=== PATIENT | male | born 1955 | race Two or more races ===

== ENCOUNTER 2018-12-30 03:28 | Inpatient (IN) | payer OTHER ==
[2018-12-30] MEDS ORDERED: FAMOTIDINE 20 MG/50 ML IVPB 20 MG/50 ML MG IVPB ONE ×2 (04:03→04:11)
[2018-12-30] MEDS ORDERED: ONDANSETRON 4 MG/2 ML VIAL IVPUSH ONE (04:03)
[2018-12-30] MEDS ORDERED: ONDANSETRON 4 MG/2 ML VIAL ONE (04:11)
--- NOTE | 2018-12-30 04:15 | PDOC ---
Attending Attestation - Resident Resident Name: Musa Lindsay - ED Attending Attestation I have performed the following: I have examined & evaluated the patient, The case was reviewed & discussed with the resident, I agree w/resident's findings & plan - HPI HPI: 12/30/18 06:46 63-year-old male complaining of upper abdominal pain, nonradiating sharp in nature. There is no associated fever. - Physicial Exam PE: 12/30/18 06:46 Agree with resident's exam. - Medical Decision Making 12/30/18 06:47 63-year-old male with upper abdominal pain Labs including troponin, EKG and CT scan of the abdomen and pelvis CT scan shows hepatic hypodensities and probable biliary disease Plan for ultrasound, signed out to dayshift for reevaluation 12/30/18 06:47
[2018-12-30 04:29] LABS: BASO % 0.9 % (0-2.0); EOS % 0.7 % (0-4.5); HEMATOCRIT 42.7 % (35.4-49); HEMOGLOBIN 14.6 GM/dL (11.7-16.9); LYMPH % 23.7 % (8-40); MCH 29.9 pg (25.7-33.7); MCHC 34.1 g/dl (32.0-35.9); MEAN CELL VOLUME 87.6 fl (80-96); MONO % 7.1 % (3.8-10.2); NEUT % 67.6 % (42.8-82.8); PLATELET COUNT 208 K/MM3 (134-434); RBC 4.87 M/mm3 (4.00-5.60); RDW 13.8 % (11.9-15.9)
[2018-12-30 04:39] LABS: INR 0.97 (0.83-1.09); PROTHROMBIN TIME (PATIENT) 11.5 SEC (9.7-13.0)
[2018-12-30 04:53] LABS: ALBUMIN 4.2 g/dl (3.4-5.0); ALK PHOS 51 U/L (45-117); ANION GAP 9 MMOL/L (8-16); BILIRUBIN,TOTAL 0.4 mg/dL (0.2-1); BLOOD UREA NITROGEN 13 mg/dL (7-18); CHLORIDE 105 mmol/L (98-107); CO2 27 mmol/L (21-32); CREATININE 0.9 mg/dL (0.55-1.3); GLUCOSE,RANDOM 126 mg/dL (74-106); LIPASE 125 U/L (73-393); POTASSIUM 3.3 mmol/L (3.5-5.1); SGOT/AST 13 U/L (15-37); SGPT/ALT 23 U/L (13-61); SODIUM 141 mmol/L (136-145); TOT PROT 7.8 g/dl (6.4-8.2)
[2018-12-30] MEDS ORDERED: morphine SULFATE 4 MG/ML VIAL ONE (05:22)
[2018-12-30] MEDS ORDERED: morphine CARPU-JECT 4 MG/1 ML DISP.SYRIN IVPUSH ONE (05:22)
--- NOTE | 2018-12-30 05:37 | PDOC ---
History of Present Illness - General Chief Complaint: Pain Stated Complaint: UPPER ABDOMINAL PAIN Time Seen by Provider: 12/30/18 03:58 History Source: Patient Exam Limitations: No Limitations - History of Present Illness Initial Comments: 12/30/18 05:33 63M with PMH of HTN who presents to the ER with complaints of abdominal pain. The patient describes a sharp pressure in his epigastrium and RUQ which is worsening and radiates to his back. The pain is atraumatic and he has never had pain like this in the past. He admits to chills and nausea without vomiting, fever, CP, SOB, diaphoresis. He denies any changes with food. He denies any hematochezia and abdominal surgeries. Past History - Past Medical History Allergies/Adverse Reactions: Allergies Allergy/AdvReac Type Severity Reaction Status Date / Time No Known Allergies Allergy Verified 12/30/18 03:52 Home Medications: Ambulatory Orders Amlodipine Besylate 1 tab PO DAILY 12/30/18 Hydrochlorothiazide 1 tab PO DAILY 12/30/18 Vitamin B Complex [B Complex] 1 each PO 12/30/18 Zinc Gluconate-Zinc Picolinate [Zinc] 30 mg PO 12/30/18 COPD: No HTN: Yes - Surgical History Neurologic Surgery: Yes (BRAIN CLIP) - Suicide/Smoking/Psychosocial Hx Smoking History: Never smoked Review of Systems - Review of Systems Able to Perform ROS?: Yes Comments:: 12/30/18 05:36 GENERAL/CONSTITUTIONAL: + for chills. No fever. No weakness. HEAD, EYES, EARS, NOSE AND THROAT: No change in vision. No ear pain or discharge. No sore throat. CARDIOVASCULAR: No chest pain, palpitations, or lightheadedness. RESPIRATORY: No cough, wheezing, shortness of breath, or hemoptysis. GASTROINTESTINAL: + for abdominal pain with nausea. No vomiting, diarrhea, or constipation. GENITOURINARY: No dysuria, frequency, hematuria, or change in urination. MUSCULOSKELETAL: No joint or muscle swelling or pain. No neck or back pain. SKIN: No rash or lesions. NEUROLOGIC: No headache, numbness, tingling, focal weakness, loss of consciousness, or change in strength/sensation. Is the patient limited Spanish proficient: No *Physical Exam - Vital Signs Last Vital Signs Temp Pulse Resp BP Pulse Ox 97.6 F 88 18 141/89 99 12/30/18 03:49 12/30/18 03:49 12/30/18 03:49 12/30/18 03:49 12/30/18 03:49 - Physical Exam Comments: 12/30/18 05:37 GENERAL: Well developed, well nourished. Awake and alert. No acute distress. HEENT: Normocephalic, atraumatic. Hearing grossly normal. Moist mucous membranes. PERRLA, EOMI. No conjunctival pallor. Sclera are non-icteric. NECK: Supple. Full ROM. No JVD. CARDIOVASCULAR: Regular rate and rhythm. No murmurs, rubs, or gallops. PULMONARY: No evidence of respiratory distress. Lungs clear to auscultation bilaterally. No wheezing, rales or rhonchi. ABDOMINAL: Soft. TTP in RUQ and epigastrium. Negative Wallace's. Non-distended. No rebound or guarding. MUSCULOSKELETAL: Normal range of motion at all joints. No bony deformities or tenderness. EXTREMITIES: No cyanosis. No clubbing. No edema. No calf tenderness or swelling. SKIN: Warm and dry. Normal capillary refill. No rashes. No jaundice. NEUROLOGICAL: Alert, awake, appropriate. Cranial nerves 2-12 grossly intact. Normal speech. Gait is normal without ataxia. PSYCHIATRIC: Cooperative. Good eye contact. Appropriate mood and affect. ED Treatment Course - LABORATORY CBC & Chemistry Diagram: 12/31/18 05:45 12/31/18 05:45 - ADDITIONAL ORDERS Additional order review: Laboratory Results 12/30/18 12/30/18 04:10 04:10 PT with INR 11.50 INR 0.97 Sodium 141 Potassium 3.3 L Chloride 105 Carbon Dioxide 27 Anion Gap 9 BUN 13 Creatinine 0.9 Creat Clearance w eGFR 85.23 Random Glucose 126 H Calcium 9.0 Total Bilirubin 0.4 AST 13 L ALT 23 Alkaline Phosphatase 51 Creatine Kinase 95 Troponin I < 0.02 Total Protein 7.8 Albumin 4.2 Lipase 125 12/30/18 04:10 RBC 4.87 MCV 87.6 MCHC 34.1 RDW 13.8 MPV 8.0 Neutrophils % 67.6 Lymphocytes % 23.7 Monocytes % 7.1 Eosinophils % 0.7 Basophils % 0.9 - RADIOLOGY Radiology Studies Ordered: Category Date Time Status ABDOMEN & PELVIS CT W/O CONTR [CT] Stat CT Scan 12/30/18 05:22 Ordered - Medications Given in the ED: ED Medications Discontinued Medications Generic Name Dose Route Start Last Admin Trade Name Isela PRN Reason Stop Dose Admin Famotidine/Sodium Chloride 20 mg in 50 mls @ 100 mls/hr 12/30/18 04:03 04:18 Pepcid 20 Mg Premixed Ivpb - IVPB 12/30/18 04:32 100 mls/hr ONCE ONE Administration Morphine Sulfate 4 mg 12/30/18 05:22 12/30/18 05:25 Morphine Injection - IVPUSH 12/30/18 05:23 4 mg ONCE ONE Administration Ondansetron HCl 4 mg 12/30/18 04:03 12/30/18 04:18 Zofran Injection IVPUSH 12/30/18 04:04 4 mg ONCE ONE Administration Medical Decision Making - Medical Decision Making 12/30/18 05:38 63M with PMH of HTN who presents with epigastric pain. Pt denies EtOH use. Due to age and PMH, will order troponin and EKG, both WNL. Labs including lipase and CBC WNL. Pt requiring IV pain medications. POCUS reveals normal AGBW size with 2 gallstones. Will obtain CTAP to evaluate pancreas and gallbladder. 12/30/18 06:39 CT impression: 5.8 x 5.1 x 4.3 cm heterogeneous hypodensity right lobe of liver, possibly a neoplasm, abscess, or hemangioma. Advise followup liver protocol MRI. Small hypodensities in gallbladder neck, possibly cholelithiasis. No nephrolithiasis, ureterolithiasis or obstructive uropathy. No bladder calculi. Unremarkable pancreas. Very faint haziness central mesenteric fat, possibly edema or mesenteritis. No bowel obstruction, colitis, free fluid or free air. Normal appendix. Small umbilical and bilateral inguinal region hernias containing fat. Trace pericardial fluid. Pending official US. 12/30/18 07:02 Pt signed out to Dr. May for further evaluation. *DC/Admit/Observation/Transfer Diagnosis at time of Disposition: Epigastric pain, Cholecystitis - Discharge Dispostion Condition at time of disposition: Good - Referrals - Patient Instructions - Post Discharge Activity
[2018-12-30] MEDS ORDERED: SODIUM CHLORIDE 0.9% 1000 ML INFUS.BAG IV ONE (05:53)
--- NOTE | 2018-12-30 07:16 | PDOC ---
*Physical Exam - Vital Signs Last Vital Signs Temp Pulse Resp BP Pulse Ox 97.6 F 80 18 122/66 100 12/30/18 03:49 12/30/18 05:56 12/30/18 05:56 12/30/18 05:56 12/30/18 05:56 ED Treatment Course - LABORATORY CBC & Chemistry Diagram: 12/30/18 04:10 12/30/18 04:10 - ADDITIONAL ORDERS Additional order review: Laboratory Results 12/30/18 12/30/18 04:10 04:10 PT with INR 11.50 INR 0.97 Sodium 141 Potassium 3.3 L Chloride 105 Carbon Dioxide 27 Anion Gap 9 BUN 13 Creatinine 0.9 Creat Clearance w eGFR 85.23 Random Glucose 126 H Calcium 9.0 Total Bilirubin 0.4 AST 13 L ALT 23 Alkaline Phosphatase 51 Creatine Kinase 95 Troponin I < 0.02 Total Protein 7.8 Albumin 4.2 Lipase 125 12/30/18 04:10 RBC 4.87 MCV 87.6 MCHC 34.1 RDW 13.8 MPV 8.0 Neutrophils % 67.6 Lymphocytes % 23.7 Monocytes % 7.1 Eosinophils % 0.7 Basophils % 0.9 - Medications Given in the ED: ED Medications Discontinued Medications Generic Name Dose Route Start Last Admin Trade Name Freq PRN Reason Stop Dose Admin Famotidine/Sodium Chloride 20 mg in 50 mls @ 100 mls/hr 12/30/18 04:03 04:18 Pepcid 20 Mg Premixed Ivpb - IVPB 12/30/18 04:32 100 mls/hr ONCE ONE Administration Morphine Sulfate 4 mg 12/30/18 05:22 12/30/18 05:25 Morphine Injection - IVPUSH 12/30/18 05:23 4 mg ONCE ONE Administration Ondansetron HCl 4 mg 12/30/18 04:03 12/30/18 04:18 Zofran Injection IVPUSH 12/30/18 04:04 4 mg ONCE ONE Administration Sodium Chloride 1,000 ml 12/30/18 05:53 12/30/18 05:57 Normal Saline - IV 12/30/18 05:54 1,000 ml ONCE ONE Administration Medical Decision Making - Medical Decision Making The pt presented for RUQ/abdominal pain, bedside US reportedly w/ cholelithiasis and CT w/ cholelithiasis and liver hypodensity pending formal US for dispo 12/30/18 07:10 EXAM: CT ABDOMEN AND PELVIS WITHOUT CONTRAST 12/30/2018 5.8 x 5.1 x 4.3 cm heterogeneous hypodensity right lobe of liver, possibly a neoplasm, abscess, or hemangioma. Advise followup liver protocol MRI. Small hypodensities in gallbladder neck, possibly cholelithiasis. Very faint haziness central mesenteric fat, possibly edema or mesenteritis Small umbilical and bilateral inguinal region hernias containing fat. Trace pericardial fluid 12/30/18 07:16 US w/ cholelithiasis, percholecystic fluid, and sludge w/ +Wallace's. General Surgery consulted, will start Zosyn, and admit for possible cholecystectomy 12/30/18 09:51 Pt signed out to hospitalist team, will admit to Med/Surg Will give Ofirmev for pain 12/30/18 10:00 *DC/Admit/Observation/Transfer Diagnosis at time of Disposition: Epigastric pain, Cholecystitis - Discharge Dispostion Condition at time of disposition: Good Decision to Admit order: Yes - Referrals Referrals: Abdirahman Rivas MD [Primary Care Provider] - - Patient Instructions - Post Discharge Activity
[2018-12-30] MEDS ORDERED: PIPERACILLIN/TAZOB 3.375 GM 3.375 GM in DEXTROSE 5%-WATER - 50 ML IVPB ONE (09:55)
[2018-12-30] MEDS ORDERED: ACETAMINOPHEN 1000 MG/100 ML VIAL (NON FORMULARY) IVPB ONE (09:55)
[2018-12-30] MEDS ORDERED: PIPERACILLIN/TAZOB 3.375 GM 3.375 GM/50 ML BAG IVPB ONE (10:04)
[2018-12-30] MEDS ORDERED: ACETAMINOPHEN INJECTION 100 ML IVPB ONE (10:04)
[2018-12-30] MEDS ORDERED: ONDANSETRON 4 MG/2 ML VIAL IVPUSH PRN (10:41)
[2018-12-30] MEDS ORDERED: ACETAMINOPHEN 1000 MG/100 ML VIAL (NON FORMULARY) IVPB PRN (10:44)
--- NOTE | 2018-12-30 10:47 | HP ---
CHIEF COMPLAINT: abdominal PCP: Dr Rivas HISTORY OF PRESENT ILLNESS: The patient is a 63 year old male with PMH of HTN that presented today complaining of abdominal pain that started yesterday around 10 PM after eating honey. He started experiencing mid-epigastric discomfort that became painful, 5/ 10 and moved to right side of his abdomen, radiating to the back. The patient took Mylanta without improvement of his symptoms. The pain was present overnight and the patient decided to come to ED in the morning. When I saw the patient he was still complaining of the pain but stated that it improved. He also reported chills. He never had similar pain in the past. He denies nausea, vomiting, diarrhea, fever, abdominal surgeries in the past. ER course was notable for: (1)CBC, CMp, (2)US, CT abdomen (3)Zosyn, NS 1 L PAST MEDICAL HISTORY: as above PAST SURGICAL HISTORY: brain aneurism that was clipped "years ago" tonsillectomy Social History: Smoking:quit 30 years ago Alcohol:occasional Drugs:no , one healthy child Family History: Mother: dementia, HTN, glaucome Father: HTN, CVS Brother: CVA Sister: parkinsons, Alzheimers Allergies No Known Allergies Allergy (Verified 12/30/18 03:52) HOME MEDICATIONS: HCTZ, Amlodypine REVIEW OF SYSTEMS CONSTITUTIONAL: chills Absent: fever, diaphoresis, generalized weakness, malaise, loss of appetite, weight change HEENT: Absent: rhinorrhea, nasal congestion, throat pain, throat swelling, difficulty swallowing CARDIOVASCULAR: Absent: chest pain, syncope, palpitations, irregular heart rate, lightheadedness , peripheral edema RESPIRATORY: Absent: cough, shortness of breath, dyspnea with exertion, orthopnea, wheezing GASTROINTESTINAL:abdominal pain Absent: abdominal distension, nausea, vomiting, diarrhea, constipation GENITOURINARY: Absent: dysuria, frequency, urgency, hesitancy, hematuria, flank pain, genital pain MUSCULOSKELETAL: Absent: myalgia, arthralgia, joint swelling, back pain, neck pain HEMATOLOGIC/IMMUNOLOGIC: Absent: easy bleeding, easy bruising, ENDOCRINE: Absent: unexplained weight gain, unexplained weight loss, heat intolerance, cold intolerance NEUROLOGIC: Absent: headache, focal weakness or paresthesias, dizziness, unsteady gait, seizure PSYCHIATRIC: Absent: anxiety, depression, suicidal or homicidal ideation, hallucinations. PHYSICAL EXAMINATION Vital Signs - 24 hr 12/30/18 12/30/18 12/30/18 03:49 05:56 10:44 Temperature 97.6 F 98.0 F Pulse Rate 88 Pulse Rate [ 80 74 Right Radial] Respiratory 18 18 18 Rate Blood Pressure 141/89 Blood Pressure 122/66 128/72 [Left Arm] O2 Sat by Pulse 99 100 98 Oximetry (%) GENERAL: Awake, alert, and fully oriented, in no acute distress. HEAD: Normal with no signs of trauma. EYES: Extraocular movements intact EARS, NOSE, THROAT: Oropharynx clear without exudates. Moist mucous membranes. NECK: Normal range of motion, supple without lymphadenopathy, JVD, or masses. LUNGS: Breath sounds equal, clear to auscultation bilaterally. No wheezes, and no crackles. HEART: Regular rate and rhythm, normal S1 and S2 without murmur, rub or gallop. ABDOMEN: Soft, tender in RUQ, Wallace negative, not distended, normoactive bowel sounds, no guarding, no rebound, no masses. MUSCULOSKELETAL: Normal range of motion at all joints. No bony deformities or tenderness. UPPER EXTREMITIES: No peripheral edema. LOWER EXTREMITIES: 2+ pulses. No peripheral edema. NEUROLOGICAL: Non focal Normal speech. Normal gait. PSYCHIATRIC: Cooperative. Good eye contact. Appropriate mood and affect. SKIN: Warm, dry, normal turgor, no rashes. Laboratory Results - last 24 hr 12/30/18 12/30/18 12/30/18 04:10 04:10 04:10 WBC 10.0 RBC 4.87 Hgb 14.6 Hct 42.7 MCV 87.6 MCH 29.9 MCHC 34.1 RDW 13.8 Plt Count 208 MPV 8.0 Absolute Neuts (auto) 6.8 Neutrophils % 67.6 Lymphocytes % 23.7 Monocytes % 7.1 Eosinophils % 0.7 Basophils % 0.9 Nucleated RBC % 0 PT with INR 11.50 INR 0.97 Sodium 141 Potassium 3.3 L Chloride 105 Carbon Dioxide 27 Anion Gap 9 BUN 13 Creatinine 0.9 Creat Clearance w eGFR 85.23 Random Glucose 126 H Calcium 9.0 Total Bilirubin 0.4 AST 13 L ALT 23 Alkaline Phosphatase 51 Creatine Kinase 95 Troponin I < 0.02 Total Protein 7.8 Albumin 4.2 Lipase 125 ASSESSMENT/PLAN: The patient is a 63 year old male with a PMH of HTN, that presented complainingof RUQ abdominal pain, admitted for possible cholecystitis. R/o cholecystitis: -clinical presentation with RUQ abdominal pain, that started after eating, with chills but no fever reported no elevated WBC, -CT abdomen and pelvis-cholelithiasis, large hypodense 6x5.2x4.2 in posterior lobe -US abdomen: fatty liver, gallbladder sludge and stones without wall thickening. Trace pericholecystic free fluid. -Surgery consulted and recommended Zosyn, NPO and will evaluate the patient later today -given Zosyn, Morphine, Pepcid in ED -will continue Ceftriaxone and Flagyl -LR at 100 cc/hr -Tylenol IV for pain -Zofran PRN HTN: -continue HCTZ and Amlodypine tomorrow F/E/N: NS/low K/NPO DVT PPX: Heparin sq Dispo: med surg Problem List - Problem (1) Cholecystitis Code(s): K81.9 - CHOLECYSTITIS, UNSPECIFIED (2) Epigastric pain Code(s): R10.13 - EPIGASTRIC PAIN Visit type - Emergency Visit Emergency Visit: Yes ED Registration Date: 12/30/18 Care time: The patient presented to the Emergency Department on the above date and was hospitalized for further evaluation of their emergent condition. - New Patient This patient is new to me today: Yes Date on this admission: 12/30/18 - Critical Care Critical Care patient: No
[2018-12-30 11:48] VITALS: BMI 32.3
[2018-12-30] MEDS: LACTATED RINGERS SOLUTION 1,000 ML IV SCH (12:13)
[2018-12-30] MEDS ORDERED: POTASSIUM CHLORIDE TABS 10 MEQ TABLET.ER (FP) PO ONE (12:30)
--- NOTE | 2018-12-30 13:37 | EKG ---
Test Reason : Blood Pressure : / mmHG Vent. Rate : 085 BPM Atrial Rate : 085 BPM P-R Int : 158 ms QRS Dur : 088 ms QT Int : 368 ms P-R-T Axes : 057 014 014 degrees QTc Int : 437 ms NORMAL SINUS RHYTHM NORMAL ECG NO PREVIOUS ECGS AVAILABLE Confirmed by CHRISTINE MCKEON MD ([id number]) on 12/30/2018 1:36:52 PM Referred By: Confirmed By:CHRISTINE MCKEON MD
--- NOTE | 2018-12-30 13:54 | PN ---
Progress Note (short form) - Note Progress Note: surgery pt seen and examined. 63m with previous brain aneurysm surgery presents with ruq pain. labs normal. Ct shows gallstone and liver mass without inflammation. u/s shows stones without inflammation and liver mass not seen. abd-soft, mild ruq tenderness Plan- probable mild acute cholecystitis. treat medically with plans for interval cholecystectomy in 6 weeks. hida to confirm. Need w/u of liver mass and neurology clearance for general anesthesia before elective surgery. low fat diet tomorrow if remains well. if hida is negative will need to look for other source of pain.
--- NOTE | 2018-12-30 14:40 | CONS ---
DATE OF CONSULTATION: 12/30/2018 REASON FOR CONSULTATION: Acute cholecystitis, cholelithiasis. This is an emergency room consultation. BRIEF HISTORY: This 63-year-old male presents to [facility] Emergency Room complaining of right upper quadrant pain. There he was noted to have normal labs. He had mild right upper quadrant tenderness. He had a CAT scan done which showed gallstones with a non-inflamed gallbladder as well as a liver mass. He went for an ultrasound which did not identify a liver mass, did show gallstones and possible cholecystitis with a small amount of fluid around the gallbladder, but no thickening or other inflammatory signs or sonographic Wallace. The patient was admitted for acute cholecystitis with IV Zosyn. Request was made for surgical evaluation. He has minimal discomfort at the time of the exam. He denies nausea, denies vomiting, denies diarrhea, denies recent weight loss. PAST MEDICAL HISTORY: Includes a brain aneurysm which was clipped. PAST SURGICAL HISTORY: Includes clipping that aneurysm as well as a tonsillectomy. SOCIAL HISTORY: Positive for quitting tobacco, positive for occasional alcohol consumption. HOME MEDICATIONS: Include Norvasc and hydrochlorothiazide. ALLERGIES: He has no known drug allergies. FAMILY HISTORY: Negative for malignancy in the immediate family. REVIEW OF SYSTEMS: General: Denies fatigue or malaise. Cardiac: Denies chest pain or palpitations. Respiratory: Denies shortness of breath or wheeze. Gastrointestinal: As in HPI. Genitourinary: Denies dysuria. Musculoskeletal: Denies joint pain, joint swelling. Psychiatric: Denies anxiety, depression, or hearing voices. PHYSICAL EXAMINATION: General: This is an overweight, 63-year-old male in no distress. HEENT: His head is normocephalic. His sclerae are anicteric. Neck: Supple. Chest: Clear. Abdomen: Soft. He has mild right upper quadrant tenderness. He has no surgical scars. He has no obvious hernias. Extremities: No edema. REVIEW OF LABORATORY: His white blood cell count is 10.0 without a shift. His liver function tests are unremarkable. His coagulation profile is unremarkable. His imaging is as in HPI. ASSESSMENT: This is a 63-year-old male with right upper quadrant pain, gallstones, and small amount of fluid around an otherwise non-inflamed gallbladder. Clinically, this is probably mild acute cholecystitis. Recommend admission and medical management and antibiotics. He has a liver mass seen on CAT scan, that is not seen on ultrasound. This needs to be worked up to rule out an underlying malignancy. Patient also has history of an aneurysm, and before undergoing any general anesthesia, would require a neurology evaluation and clearance. At this point, would treat medically, and patient can consider an interval cholecystectomy in 6 weeks. I will also get a HIDA scan to confirm that the gallbladder does indeed have obstruction of his cystic duct. If the HIDA scan turns out to be negative, then another source of pain will need to be searched for, and this will likely warrant a GI evaluation or possibly the mass itself may be causing the pain. At this point, he is nontoxic. Recommend low-fat diet starting tomorrow if he remains without fever and well, and then, he could probably go home with a week of Augmentin antibiotic and outpatient followup for interval cholecystectomy in 6 weeks. Again, that is assuming the HIDA is positive. DO RAINE NEVES/[id number]
[2018-12-30] MEDS ORDERED: DEXTROSE 5%-WATER - 50 ML IVPB ONE (16:39)
[2018-12-30] MEDS ORDERED: cefTRIAXone SODIUM 1 GM VIAL ONE (16:39)
[2018-12-30] MEDS ORDERED: CEFTRIAXONE 1 GM in DEXTROSE 5%-WATER - 50 ML IVPB SCH (18:00)
--- NOTE | 2018-12-30 19:33 | PN ---
Teaching Attending Note Name of Resident: Tiffanie Crockett ATTENDING PHYSICIAN STATEMENT I saw and evaluated the patient. I reviewed the resident's note and discussed the case with the resident. I agree with the resident's findings and plan as documented. CC: my stomach hurts HPI: Mr Murray is a pleasant 63 year old male who comes in with abdominal pain. He says it started last night after he ate. The pain was crampy and located on his RUQ. He denies n/v with it. It was persistent so he came into the hospital. Currently it's resolved. He denies fevers, chills, lightheadedness , dizziness, chest pain, shortness of breath, diarrhea, constipation, difficulty or pain on urination, or swelling. PMHx: HTN PSHx: aneurysm clip, tonsillectomy Home Medications Medication Instructions Recorded Amlodipine Besylate 1 tab PO DAILY 12/30/18 Hydrochlorothiazide 1 tab PO DAILY 12/30/18 Vitamin B Complex [B Complex] 1 each PO 12/30/18 Zinc Gluconate-Zinc Picolinate 30 mg PO 12/30/18 [Zinc] SHx: denies tobacco and [employer], occasional EtOH FHx: Mother with dementia ROS: full review of systems obtained, as per HPI and otherwise negative OBJECTIVE: Gen: nad, obese HEENT: perrla, eomi Pulm: ctab w/o w/r/r CV: rrr w/o m/r/g Abd: +bs, s/nd, TTP in RUX Ext: no c/c/e ASSESSMENT AND PLAN: -general surgery consulted -npo -IVF -place on rocephin and flagyl -HIDA scan for tomorrow Problem List - Problems (1) HTN (hypertension) Code(s): I10 - ESSENTIAL (PRIMARY) HYPERTENSION (2) Cholecystitis Code(s): K81.9 - CHOLECYSTITIS, UNSPECIFIED
[2018-12-30] MEDS: HEPARIN NA (PORCINE) 5,000 UNITS/ML 1ML VIAL SQ SCH (21:09)
[2018-12-31 06:59] LABS: BASO % 0.4 % (0-2.0); EOS % 0.1 % (0-4.5); HEMATOCRIT 39.5 % (35.4-49); HEMOGLOBIN 13.6 GM/dL (11.7-16.9); LYMPH % 10.1 % (8-40); MCH 29.7 pg (25.7-33.7); MCHC 34.4 g/dl (32.0-35.9); MEAN CELL VOLUME 86.5 fl (80-96); MONO % 7.8 % (3.8-10.2); NEUT % 81.6 % (42.8-82.8); PLATELET COUNT 191 K/MM3 (134-434); RBC 4.57 M/mm3 (4.00-5.60)
[2018-12-31 07:10] LABS: ALBUMIN 3.5 g/dl (3.4-5.0); ALK PHOS 49 U/L (45-117); ANION GAP 6 MMOL/L (8-16); BILIRUBIN,TOTAL 0.9 mg/dL (0.2-1); BLOOD UREA NITROGEN 7 mg/dL (7-18); CALCIUM 8.4 mg/dL (8.5-10.1); CHLORIDE 106 mmol/L (98-107); CO2 27 mmol/L (21-32); CREATININE 0.7 mg/dL (0.55-1.3); GLUCOSE,RANDOM 109 mg/dL (74-106); MAGNESIUM 2.1 mg/dL (1.8-2.4); PHOSPHOROUS 2.3 mg/dL (2.5-4.9); POTASSIUM 3.2 mmol/L (3.5-5.1); SGOT/AST 20 U/L (15-37); SGPT/ALT 31 U/L (13-61); SODIUM 139 mmol/L (136-145); TOT PROT 6.7 g/dl (6.4-8.2)
[2018-12-31] MEDS ORDERED: HYDROCHLOROTHIAZIDE 12.5 MG CAPSULE (FP) PO SCH (10:00)
[2018-12-31] MEDS: amLODIPine BESYLATE 5 MG TABLET (FP) PO SCH (12:07)
[2018-12-31] MEDS: HEPARIN NA (PORCINE) 5,000 UNITS/ML 1ML VIAL SQ SCH ×2 (12:12→21:45)
--- NOTE | 2018-12-31 12:37 | PN ---
Progress Note (short form) - Note Progress Note: surgery pt feels well and demanding food. wbc now 11. HIDA shows non filling at 2 hours likely consistent with expected acute cholecystitis. will start clear liquids. change abx back to zosyn for better coverage and penetration into bile. if no fever, worsening pain, or rising wbc and advance to low fat diet tomorrow. Poss d/c on oral augmentin for a week with interval cholecystectomy after liver mass w/u. If pt worsens will need percutaneous drainage by IR.
[2018-12-31] MEDS ORDERED: PIPERACILLIN IVPB SCH (13:00)
[2018-12-31] MEDS ORDERED: DEXTROSE 5% IVPB SCH (13:00)
[2018-12-31] MEDS ORDERED: WATER IVPB SCH (13:00)
[2018-12-31] MEDS ORDERED: TAZOB IVPB SCH (13:00)
[2018-12-31] MEDS ORDERED: PIPERACILLIN/TAZOBACTAM 4.5 GM VIAL IVPB ONE (13:02)
[2018-12-31] MEDS ORDERED: DEXTROSE 5%-WATER 100 ML IVPB ONE (13:02)
[2018-12-31] MEDS ORDERED: PIPERACILLIN/TAZOB 4.5 GM 4.5 GM in DEXTROSE 5%-WATER 100 ML IVPB SCH (13:02)
--- NOTE | 2018-12-31 13:54 | CON.ID ---
Consult Consult Specialty:: infectious diseases Referred by:: Reason for Consultation:: ac choleycystitis - History of Present Illness Chief Complaint: abd pain History of Present Illness: 63 year old male with PMH of HTN that presented today complaining of abdominal pain that started yesterday around 10 PM after eating honey. He started experiencing mid-epigastric discomfort that became painful, 5/10 and moved to right side of his abdomen, radiating to the back. The patient took Mylanta without improvement of his symptoms. The pain was present overnight and the patient decided to come to ED in the morning. When I saw the patient he was still complaining of the pain but stated that it improved. He also reported chills. He never had similar pain in the past. He denies nausea, vomiting, diarrhea, fever, abdominal surgeries in the past. patient was worked up and found to have cholecystitis - History Source History Provided By: Patient Limitations to Obtaining History: No Limitations - Alcohol/Substance Use Hx Alcohol Use: Yes (special occassion) - Smoking History Smoking history: Never smoked Home Medications - Allergies Allergies/Adverse Reactions: Allergies Allergy/AdvReac Type Severity Reaction Status Date / Time ceftriaxone Allergy Mild Swelling Verified 01/01/19 11:10 - Home Medications Home Medications: Ambulatory Orders Amlodipine Besylate 1 tab PO DAILY 12/30/18 Hydrochlorothiazide 1 tab PO DAILY 12/30/18 Vitamin B Complex [B Complex] 1 each PO 12/30/18 Zinc Gluconate-Zinc Picolinate [Zinc] 30 mg PO 12/30/18 Review of Systems - Review of Systems Constitutional: reports: No Symptoms Eyes: reports: No Symptoms HENT: reports: No Symptoms Neck: reports: No Symptoms Cardiovascular: reports: No Symptoms Respiratory: reports: No Symptoms Gastrointestinal: reports: Abdominal Pain Genitourinary: reports: No Symptoms Musculoskeletal: reports: No Symptoms Integumentary: reports: No Symptoms Neurological: reports: No Symptoms Endocrine: reports: No Symptoms Hematology/Lymphatic: reports: No Symptoms Psychiatric: reports: No Symptoms Physical Exam Vital Signs: Vital Signs Temperature 98.8 F 12/31/18 05:27 Pulse Rate 80 12/31/18 10:00 Respiratory Rate 18 12/31/18 10:00 Blood Pressure 152/91 12/31/18 10:00 O2 Sat by Pulse Oximetry (%) 98 12/30/18 10:44 Constitutional: Yes: Well Nourished, Calm, Mild Distress Cardiovascular: Yes: Regular Rate and Rhythm Respiratory: Yes: Regular, CTA Bilaterally Gastrointestinal: Yes: Hypoactive Bowel Sounds, Tenderness (ruq) Musculoskeletal: Yes: WNL Extremities: Yes: WNL Neurological: Yes: Alert, Oriented Psychiatric: Yes: Alert, Oriented Labs: CBC, BMP 12/31/18 05:45 12/31/18 05:45 Imaging - Results Cat Scan: Report Reviewed, Image Reviewed Ultrasound: Report Reviewed, Image Reviewed Assessment/Plan Problem List - Problems (1) HTN (hypertension) Code(s): I10 - ESSENTIAL (PRIMARY) HYPERTENSION (2) Cholecystitis Code(s): K81.9 - CHOLECYSTITIS, UNSPECIFIED 3 leukocytosis abd pain plan will start patient on abx close watch on wbc rest as per the team
[2018-12-31] MEDS ORDERED: DEXTROSE 5%-WATER - 50 ML IVPB ONE (16:24)
[2018-12-31] MEDS ORDERED: PIPERACILLIN/TAZOBACTAM 3.375 GM VIAL IVPB ONE (16:24)
[2018-12-31] MEDS: LACTATED RINGERS SOLUTION 1,000 ML IV SCH (17:28)
[2018-12-31] MEDS: PIPERACILLIN/TAZOB 3.375 GM 3.375 GM in DEXTROSE 5%-WATER - 50 ML IVPB SCH (17:28)
--- NOTE | 2018-12-31 18:08 | PN ---
Physical Exam: SUBJECTIVE: Patient seen and examined. He is feeling better today, hungry. OBJECTIVE: Vital Signs Period Temp Pulse Resp BP Sys/Arriaga Pulse Ox Last 24 Hr 98.8 F-98.8 F 78-80 18-20 136-153/81-91 GENERAL: The patient is awake, alert, and fully oriented, in no acute distress. HEAD: Normal with no signs of trauma. EYES: Extraocular movements intact, conjunctiva clear. ENT: Moist mucous membranes. NECK: Trachea midline, supple. LUNGS: Breath sounds equal, clear to auscultation bilaterally, no wheezes, no crackles, no accessory muscle use. HEART: Regular rate and rhythm, S1, S2 without murmur, rub or gallop. ABDOMEN: Soft, tender in RUQ, normoactive bowel sounds, no guarding, no rebound. EXTREMITIES: 2+ pulses, warm, no edema. NEUROLOGICAL: Normal speech, no facial asymmetry gait not observed. PSYCH: Normal mood, normal affect. SKIN: Warm, dry, normal turgor, no rashes Laboratory Results - last 24 hr 12/31/18 12/31/18 05:45 05:45 WBC 11.0 H RBC 4.57 Hgb 13.6 Hct 39.5 MCV 86.5 MCH 29.7 MCHC 34.4 RDW 14.0 Plt Count 191 MPV 8.0 Absolute Neuts (auto) 9.0 H Neutrophils % 81.6 D Lymphocytes % 10.1 D Monocytes % 7.8 Eosinophils % 0.1 D Basophils % 0.4 Nucleated RBC % 0 Sodium 139 Potassium 3.2 L Chloride 106 Carbon Dioxide 27 Anion Gap 6 L BUN 7 Creatinine 0.7 Creat Clearance w eGFR 113.90 Random Glucose 109 H Calcium 8.4 L Phosphorus 2.3 L Magnesium 2.1 Total Bilirubin 0.9 AST 20 ALT 31 Alkaline Phosphatase 49 Total Protein 6.7 Albumin 3.5 Active Medications Generic Name Dose Route Start Last Admin Trade Name Freq PRN Reason Stop Dose Admin Acetaminophen 500 mg 12/31/18 16:14 Tylenol - PO Q6H PRN PAIN SCALE 4-6 Amlodipine Besylate 5 mg 12/31/18 10:00 12/31/18 12:07 Norvasc - PO 5 mg DAILY [facility] Administration Heparin Sodium (Porcine) 5,000 unit 12/30/18 22:00 12/31/18 12:12 Heparin - SQ 5,000 unit BID [facility] Administration Hydrochlorothiazide 12.5 mg 12/31/18 13:14 Hctz - PO DAILY [facility] Lactated Ringer's 1,000 mls @ 100 mls/hr 12/30/18 10:45 12/31/18 17:28 Lactated Ringers Solution IV 100 mls/hr ASDIR [facility] Administration Piperacillin Sod/Tazobactam 50 mls @ 100 mls/hr 12/31/18 18:00 12/31/18 17:28 Sod 3.375 gm/ Dextrose IVPB 100 mls/hr Q8H-IV [facility] Administration Protocol Ondansetron HCl 4 mg 12/30/18 10:41 Zofran Injection IVPUSH Q6H PRN NAUSEA ASSESSMENT/PLAN: The patient is a 63 year old male with a PMH of HTN, that presented complaining of RUQ abdominal pain, admitted for possible cholecystitis. R/o cholecystitis: -clinical presentation with RUQ abdominal pain, that started after eating, with chills but no fever reported no elevated WBC, -CT abdomen and pelvis-cholelithiasis, large hypodense 6x5.2x4.2 in posterior lobe -US abdomen: fatty liver, gallbladder sludge and stones without wall thickening. Trace pericholecystic free fluid. -Surgery consulted and recommended medical treatment with Zosyn, no surgery, will consult ID -HIDA scan positive for cholecystitis -LR at 100 cc/hr -Tylenol IV for pain -Zofran PRN Liver mass: -larg mass in posterior lobe -will obtain MRI abomen HTN: -continue HCTZ and Amlodypine F/E/N: LR/low K/low Cholesterol diet DVT PPX: Heparin sq Dispo: med surg Problem List - Problems (1) Cholecystitis Code(s): K81.9 - CHOLECYSTITIS, UNSPECIFIED (2) Epigastric pain Code(s): R10.13 - EPIGASTRIC PAIN Visit type - Emergency Visit Emergency Visit: Yes ED Registration Date: 12/30/18 Care time: The patient presented to the Emergency Department on the above date and was hospitalized for further evaluation of their emergent condition. - New Patient This patient is new to me today: No - Critical Care Critical Care patient: No - Discharge Referral Referred to [facility] Med P.C.: No
[2018-12-31] MEDS ORDERED: POTASSIUM CHLORIDE TABS 10 MEQ TABLET.ER (FP) PO ONE (18:09)
--- NOTE | 2018-12-31 18:42 | PN ---
Teaching Attending Note Name of Resident: Tiffanie Crockett ATTENDING PHYSICIAN STATEMENT I saw and evaluated the patient. I reviewed the resident's note and discussed the case with the resident. I agree with the resident's findings and plan as documented. SUBJECTIVE: Mr Murray says he is feeling better. Requesting a diet. Denies cp, sob, n/v. OBJECTIVE: Last Vital Signs Temp Pulse Resp BP Pulse Ox 37.1 C 80 18 153/81 98 12/31/18 15:25 12/31/18 15:25 12/31/18 10:00 12/31/18 15:25 12/30/18 10:44 Gen: nad Pulm: ctab w/o w/r/r CV: rrr w/o m/r/g Abd: +bs, s/nt/nd Ext: no c/c/e CBC, BMP 12/31/18 05:45 12/31/18 05:45 ASSESSMENT AND PLAN: -case d/w Dr Yusuf -HIDA scan positive -will change to zosyn -consult ID -advance diet -may need cholecystostomy tube if cannot tolerate -obtain CT scan A/P with contrast to evaluate liver mass Problem List - Problems (1) HTN (hypertension) Code(s): I10 - ESSENTIAL (PRIMARY) HYPERTENSION (2) Cholecystitis Code(s): K81.9 - CHOLECYSTITIS, UNSPECIFIED
[2019-01-01] MEDS ORDERED: PIPERACILLIN/TAZOB 4.5 GM 4.5 GM in DEXTROSE 5%-WATER 100 ML IVPB SCH (02:00)
[2019-01-01] MEDS ORDERED: PIPERACILLIN/TAZOBACTAM 3.375 GM VIAL IVPB ONE ×3 (02:44→18:37)
[2019-01-01] MEDS ORDERED: DEXTROSE 5%-WATER - 50 ML IVPB ONE ×3 (02:44→18:37)
[2019-01-01] MEDS: PIPERACILLIN/TAZOB 3.375 GM 3.375 GM in DEXTROSE 5%-WATER - 50 ML IVPB SCH ×3 (02:59→18:42)
[2019-01-01] MEDS: LACTATED RINGERS SOLUTION 1,000 ML/1,000 ML INFUS.BAG IV SCH ×2 (06:23→18:52)
[2019-01-01 07:41] LABS: BASO % 0.2 % (0-2.0); EOS % 0.1 % (0-4.5); HEMATOCRIT 38.4 % (35.4-49); HEMOGLOBIN 13.3 GM/dL (11.7-16.9); LYMPH % 10.3 % (8-40); MCH 29.9 pg (25.7-33.7); MCHC 34.6 g/dl (32.0-35.9); MEAN CELL VOLUME 86.3 fl (80-96); MEAN PLT VOLUME 8.2 fl (7.5-11.1); MONO % 9.2 % (3.8-10.2); NEUT % 80.2 % (42.8-82.8); PLATELET COUNT 200 K/MM3 (134-434); RBC 4.45 M/mm3 (4.00-5.60); RDW 13.4 % (11.9-15.9); WHITE BLOOD COUNT 13.2 K/mm3 (4.0-10.0)
[2019-01-01 08:08] LABS: ALBUMIN 3.4 g/dl (3.4-5.0); ALK PHOS 54 U/L (45-117); ANION GAP 8 MMOL/L (8-16); BILIRUBIN,TOTAL 1.5 mg/dL (0.2-1); BLOOD UREA NITROGEN 10 mg/dL (7-18); CALCIUM 8.4 mg/dL (8.5-10.1); CHLORIDE 101 mmol/L (98-107); CO2 30 mmol/L (21-32); GLUCOSE,RANDOM 122 mg/dL (74-106); SGOT/AST 22 U/L (15-37); SGPT/ALT 31 U/L (13-61); SODIUM 139 mmol/L (136-145); TOT PROT 6.5 g/dl (6.4-8.2)
[2019-01-01 09:17] LABS: POTASSIUM 2.9 mmol/L (3.5-5.1)
[2019-01-01] MEDS: amLODIPine BESYLATE 5 MG TABLET (FP) PO SCH (10:50)
[2019-01-01] MEDS: HEPARIN NA (PORCINE) 5,000 UNITS/ML 1ML VIAL SQ SCH ×2 (10:51→21:55)
[2019-01-01] MEDS: HYDROCHLOROTHIAZIDE 12.5 MG CAPSULE (FP) PO SCH (10:51)
--- NOTE | 2019-01-01 11:15 | PN ---
Progress Note, Physician History of Present Illness: patient continues to have pain in ruq still with some rigidity but says he feels better wbc has increased - Current Medication List Current Medications: Active Medications Acetaminophen (Tylenol -) 500 mg PO Q6H PRN PRN Reason: PAIN SCALE 4-6 Amlodipine Besylate (Norvasc -) 5 mg PO DAILY [facility] Last Admin: 01/01/19 10:50 Dose: 5 mg Heparin Sodium (Porcine) (Heparin -) 5,000 unit SQ BID [facility] Last Admin: 01/01/19 10:51 Dose: 5,000 unit Hydrochlorothiazide (Hctz -) 12.5 mg PO DAILY [facility] Last Admin: 01/01/19 10:51 Dose: 12.5 mg Piperacillin Sod/Tazobactam (Sod 3.375 gm/ Dextrose) 50 mls @ 100 mls/hr IVPB Q8H-IV [facility]; Protocol Last Admin: 01/01/19 10:54 Dose: 100 mls/hr Lactated Ringer's (Lactated Ringers Solution) 1,000 ml in 1,000 mls @ 100 mls/ hr IV ASDIR [facility] Last Admin: 01/01/19 06:23 Dose: 100 mls/hr Potassium Chloride (Potassium Chloride 10 Meq Premix Ivpb -) 10 meq in 100 mls @ 100 mls/hr IVPB Q60M [facility] Stop: 01/01/19 13:59 Ondansetron HCl (Zofran Injection) 4 mg IVPUSH Q6H PRN PRN Reason: NAUSEA - Objective Vital Signs: Vital Signs Temperature 99.7 F H 01/01/19 06:00 Pulse Rate 82 01/01/19 06:00 Respiratory Rate 20 01/01/19 06:00 Blood Pressure 116/71 01/01/19 06:00 O2 Sat by Pulse Oximetry (%) 98 12/31/18 21:00 Constitutional: Yes: Calm, Mild Distress Cardiovascular: Yes: Regular Rate and Rhythm Respiratory: Yes: Regular, CTA Bilaterally Gastrointestinal: Yes: Soft, Hypoactive Bowel Sounds, Tenderness (ruq), Other ( mild rigidity ruq) Musculoskeletal: Yes: WNL Extremities: Yes: WNL Neurological: Yes: Alert, Oriented Psychiatric: Yes: Alert, Oriented Labs: CBC, BMP 01/01/19 07:00 01/01/19 07:00 INR, PTT INR 0.97 (0.83-1.09) 12/30/18 04:10 Assessment/Plan Problem List - Problems (1) HTN (hypertension) Code(s): I10 - ESSENTIAL (PRIMARY) HYPERTENSION (2) Cholecystitis Code(s): K81.9 - CHOLECYSTITIS, UNSPECIFIED 3 leukocytosis abd pain plan will continue abx ct scan close monitoring
[2019-01-01] MEDS: KCL 10 MEQ IVPB 10 MEQ/100 ML INFUS.BAG IVPB SCH ×3 (11:54→14:42)
--- NOTE | 2019-01-01 12:18 | PN ---
Progress Note, Physician Chief Complaint: Mr Murray is without complaint today. He is tolerating his diet. He denies cp, sob, n/v. Denies abdominal pain on eating, but endorses it is still there with palpation. - Current Medication List Current Medications: Active Medications Acetaminophen (Tylenol -) 500 mg PO Q6H PRN PRN Reason: PAIN SCALE 4-6 Amlodipine Besylate (Norvasc -) 5 mg PO DAILY [facility] Last Admin: 01/01/19 10:50 Dose: 5 mg Heparin Sodium (Porcine) (Heparin -) 5,000 unit SQ BID [facility] Last Admin: 01/01/19 10:51 Dose: 5,000 unit Hydrochlorothiazide (Hctz -) 12.5 mg PO DAILY [facility] Last Admin: 01/01/19 10:51 Dose: 12.5 mg Piperacillin Sod/Tazobactam (Sod 3.375 gm/ Dextrose) 50 mls @ 100 mls/hr IVPB Q8H-IV [facility]; Protocol Last Admin: 01/01/19 10:54 Dose: 100 mls/hr Lactated Ringer's (Lactated Ringers Solution) 1,000 ml in 1,000 mls @ 100 mls/ hr IV ASDIR [facility] Last Admin: 01/01/19 06:23 Dose: 100 mls/hr Potassium Chloride (Potassium Chloride 10 Meq Premix Ivpb -) 10 meq in 100 mls @ 100 mls/hr IVPB Q60M [facility] Stop: 01/01/19 13:59 Last Admin: 01/01/19 11:54 Dose: 100 mls/hr Ondansetron HCl (Zofran Injection) 4 mg IVPUSH Q6H PRN PRN Reason: NAUSEA - Objective Vital Signs: Vital Signs Temperature 37.6 C H 01/01/19 06:00 Pulse Rate 82 01/01/19 06:00 Respiratory Rate 20 01/01/19 06:00 Blood Pressure 116/71 01/01/19 06:00 O2 Sat by Pulse Oximetry (%) 98 12/31/18 21:00 Constitutional: Yes: No Distress, Calm, Obese Cardiovascular: Yes: Regular Rate and Rhythm. No: Gallop, Murmur, Rub Respiratory: Yes: Regular, CTA Bilaterally. No: Rales, Rhonchi, Wheezes Gastrointestinal: Yes: Normal Bowel Sounds, Soft, Tenderness (RUQ). No: Distention Extremities: Yes: WNL Edema: No Labs: CBC, BMP 01/01/19 07:00 01/01/19 07:00 INR, PTT INR 0.97 (0.83-1.09) 12/30/18 04:10 Problem List - Problems (1) HTN (hypertension) Code(s): I10 - ESSENTIAL (PRIMARY) HYPERTENSION (2) Cholecystitis Code(s): K81.9 - CHOLECYSTITIS, UNSPECIFIED Assessment/Plan -case d/w Dr Smith -leukocytosis increased today -will continue IV zosyn -will not advance diet -recheck labs tomorrow -CT A/P with contrast ordered -replace potassium per IV -otherwise continue current management
[2019-01-01] MEDS: ACETAMINOPHEN 500 MG TABLET (FP) PO PRN (14:42)
[2019-01-02] MEDS ORDERED: DEXTROSE 5%-WATER - 50 ML IVPB ONE ×3 (01:51→16:51)
[2019-01-02] MEDS ORDERED: PIPERACILLIN/TAZOBACTAM 3.375 GM VIAL IVPB ONE ×3 (01:51→16:51)
[2019-01-02] MEDS: PIPERACILLIN/TAZOB 3.375 GM 3.375 GM in DEXTROSE 5%-WATER - 50 ML IVPB SCH ×3 (02:32→17:28)
[2019-01-02 07:58] LABS: BASO % 0.3 % (0-2.0); EOS % 0.9 % (0-4.5); HEMATOCRIT 37.2 % (35.4-49); LYMPH % 21.7 % (8-40); MCHC 34.9 g/dl (32.0-35.9); MEAN CELL VOLUME 85.9 fl (80-96); MEAN PLT VOLUME 8.1 fl (7.5-11.1); MONO % 8.6 % (3.8-10.2); NEUT % 68.5 % (42.8-82.8); PLATELET COUNT 197 K/MM3 (134-434); RBC 4.33 M/mm3 (4.00-5.60); RDW 13.6 % (11.9-15.9); WHITE BLOOD COUNT 9.5 K/mm3 (4.0-10.0)
[2019-01-02 08:20] LABS: ALBUMIN 3.2 g/dl (3.4-5.0); ALK PHOS 54 U/L (45-117); ANION GAP 9 MMOL/L (8-16); BILIRUBIN,DIRECT 0.4 mg/dL (0.0-0.2); BILIRUBIN,TOTAL 0.9 mg/dL (0.2-1); BLOOD UREA NITROGEN 8 mg/dL (7-18); CALCIUM 8.4 mg/dL (8.5-10.1); CHLORIDE 104 mmol/L (98-107); CO2 30 mmol/L (21-32); GLUCOSE,RANDOM 82 mg/dL (74-106); MAGNESIUM 2.5 mg/dL (1.8-2.4); PHOSPHOROUS 3.1 mg/dL (2.5-4.9); SGOT/AST 22 U/L (15-37); SGPT/ALT 29 U/L (13-61); SODIUM 143 mmol/L (136-145); TOT PROT 6.4 g/dl (6.4-8.2)
[2019-01-02] MEDS: amLODIPine BESYLATE 5 MG TABLET (FP) PO SCH (10:10)
[2019-01-02] MEDS: HEPARIN NA (PORCINE) 5,000 UNITS/ML 1ML VIAL SQ SCH ×2 (10:10→21:17)
[2019-01-02] MEDS: HYDROCHLOROTHIAZIDE 12.5 MG CAPSULE (FP) PO SCH (10:10)
[2019-01-02] MEDS: LACTATED RINGERS SOLUTION 1,000 ML/1,000 ML INFUS.BAG IV SCH ×2 (10:13→23:50)
--- NOTE | 2019-01-02 10:53 | PN ---
Progress Note, Physician History of Present Illness: patient feels slightly better no new issues wbc has normalized had a low grade fever yesterday - Current Medication List Current Medications: Active Medications Acetaminophen (Tylenol -) 500 mg PO Q6H PRN PRN Reason: PAIN SCALE 4-6 Last Admin: 01/01/19 14:42 Dose: 500 mg Amlodipine Besylate (Norvasc -) 5 mg PO DAILY [facility] Last Admin: 01/02/19 10:10 Dose: 5 mg Heparin Sodium (Porcine) (Heparin -) 5,000 unit SQ BID [facility] Last Admin: 01/02/19 10:10 Dose: 5,000 unit Hydrochlorothiazide (Hctz -) 12.5 mg PO DAILY [facility] Last Admin: 01/02/19 10:10 Dose: 12.5 mg Piperacillin Sod/Tazobactam (Sod 3.375 gm/ Dextrose) 50 mls @ 100 mls/hr IVPB Q8H-IV [facility]; Protocol Last Admin: 01/02/19 10:10 Dose: 100 mls/hr Lactated Ringer's (Lactated Ringers Solution) 1,000 ml in 1,000 mls @ 100 mls/ hr IV ASDIR [facility] Last Admin: 01/02/19 10:13 Dose: 100 mls/hr Ondansetron HCl (Zofran Injection) 4 mg IVPUSH Q6H PRN PRN Reason: NAUSEA - Objective Vital Signs: Vital Signs Temperature 99.7 F H 01/02/19 02:22 Pulse Rate 72 01/02/19 02:22 Respiratory Rate 20 01/02/19 02:22 Blood Pressure 119/68 01/02/19 02:22 O2 Sat by Pulse Oximetry (%) 96 01/01/19 21:00 Constitutional: Yes: No Distress, Calm Cardiovascular: Yes: Regular Rate and Rhythm Respiratory: Yes: Regular, CTA Bilaterally Gastrointestinal: Yes: Soft, Tenderness (ruq) Musculoskeletal: Yes: WNL Extremities: Yes: WNL Neurological: Yes: Alert, Oriented Psychiatric: Yes: Alert, Oriented Labs: CBC, BMP 01/02/19 07:00 01/02/19 07:00 INR, PTT INR 0.97 (0.83-1.09) 12/30/18 04:10 Assessment/Plan Problem List - Problems (1) HTN (hypertension) Code(s): I10 - ESSENTIAL (PRIMARY) HYPERTENSION (2) Cholecystitis Code(s): K81.9 - CHOLECYSTITIS, UNSPECIFIED 3 leukocytosis abd pain plan will continue abx await ct scan results wbc has normalized rest as per the team
[2019-01-02] MEDS ORDERED: POTASSIUM CHLORIDE TABS 20 MEQ TABLET.ER (FP) PO ONE (15:00)
--- NOTE | 2019-01-02 15:02 | PN ---
Progress Note, Physician Chief Complaint: Mr Murray says he is doing well today. Says the pain is much less even with pressing. No cp, sob, n/v. Asking to have his diet advanced. - Current Medication List Current Medications: Active Medications Acetaminophen (Tylenol -) 500 mg PO Q6H PRN PRN Reason: PAIN SCALE 4-6 Last Admin: 01/01/19 14:42 Dose: 500 mg Amlodipine Besylate (Norvasc -) 5 mg PO DAILY [facility] Last Admin: 01/02/19 10:10 Dose: 5 mg Heparin Sodium (Porcine) (Heparin -) 5,000 unit SQ BID [facility] Last Admin: 01/02/19 10:10 Dose: 5,000 unit Hydrochlorothiazide (Hctz -) 12.5 mg PO DAILY [facility] Last Admin: 01/02/19 10:10 Dose: 12.5 mg Piperacillin Sod/Tazobactam (Sod 3.375 gm/ Dextrose) 50 mls @ 100 mls/hr IVPB Q8H-IV [facility]; Protocol Last Admin: 01/02/19 10:10 Dose: 100 mls/hr Lactated Ringer's (Lactated Ringers Solution) 1,000 ml in 1,000 mls @ 100 mls/ hr IV ASDIR [facility] Last Admin: 01/02/19 10:13 Dose: 100 mls/hr Ondansetron HCl (Zofran Injection) 4 mg IVPUSH Q6H PRN PRN Reason: NAUSEA Potassium Chloride (K-Dur -) 40 meq PO ONCE ONE Stop: 01/02/19 15:01 - Objective Vital Signs: Vital Signs Temperature 37.3 C 01/02/19 09:00 Pulse Rate 87 01/02/19 09:00 Respiratory Rate 19 01/02/19 09:00 Blood Pressure 137/86 01/02/19 09:00 O2 Sat by Pulse Oximetry (%) 97 01/02/19 09:00 Constitutional: Yes: No Distress, Calm, Obese Cardiovascular: Yes: Regular Rate and Rhythm. No: Gallop, Murmur, Rub Respiratory: Yes: Regular, CTA Bilaterally. No: Rales, Rhonchi, Wheezes Gastrointestinal: Yes: Normal Bowel Sounds, Soft. No: Distention, Tenderness Extremities: Yes: WNL Edema: No Labs: CBC, BMP 01/02/19 07:00 01/02/19 07:00 INR, PTT INR 0.97 (0.83-1.09) 12/30/18 04:10 Problem List - Problems (1) HTN (hypertension) Code(s): I10 - ESSENTIAL (PRIMARY) HYPERTENSION (2) Cholecystitis Code(s): K81.9 - CHOLECYSTITIS, UNSPECIFIED Assessment/Plan -leukocytosis resolved today -RUQ pain absent on palpation -advance diet -replace potassium -follow up CT scan -continue zosyn -improving
[2019-01-02] MEDS: ACETAMINOPHEN 500 MG TABLET (FP) PO PRN (16:24)
[2019-01-03] MEDS ORDERED: PIPERACILLIN/TAZOBACTAM 3.375 GM VIAL IVPB ONE ×3 (00:57→17:55)
[2019-01-03] MEDS ORDERED: DEXTROSE 5%-WATER - 50 ML IVPB ONE ×3 (00:58→17:55)
[2019-01-03] MEDS: PIPERACILLIN/TAZOB 3.375 GM 3.375 GM in DEXTROSE 5%-WATER - 50 ML IVPB SCH ×3 (02:28→18:14)
[2019-01-03 07:10] LABS: BASO % 0.5 % (0-2.0); EOS % 1.4 % (0-4.5); HEMATOCRIT 35.3 % (35.4-49); HEMOGLOBIN 12.3 GM/dL (11.7-16.9); LYMPH % 20.7 % (8-40); MCH 30.2 pg (25.7-33.7); MCHC 34.9 g/dl (32.0-35.9); MEAN CELL VOLUME 86.5 fl (80-96); MEAN PLT VOLUME 7.9 fl (7.5-11.1); MONO % 8.8 % (3.8-10.2); NEUT % 68.6 % (42.8-82.8); PLATELET COUNT 208 K/MM3 (134-434); RBC 4.08 M/mm3 (4.00-5.60); RDW 13.6 % (11.9-15.9); WHITE BLOOD COUNT 7.5 K/mm3 (4.0-10.0)
[2019-01-03 07:20] LABS: ANION GAP 7 MMOL/L (8-16); BLOOD UREA NITROGEN 6 mg/dL (7-18); CALCIUM 8.7 mg/dL (8.5-10.1); CHLORIDE 107 mmol/L (98-107); CO2 27 mmol/L (21-32); CREATININE 0.8 mg/dL (0.55-1.3); GLUCOSE,RANDOM 94 mg/dL (74-106); MAGNESIUM 2.4 mg/dL (1.8-2.4); PHOSPHOROUS 3.5 mg/dL (2.5-4.9); POTASSIUM 3.3 mmol/L (3.5-5.1); SODIUM 142 mmol/L (136-145)
[2019-01-03] MEDS ORDERED: POTASSIUM CHLORIDE TABS 20 MEQ TABLET.ER (FP) PO ONE (08:15)
[2019-01-03] MEDS: HYDROCHLOROTHIAZIDE 12.5 MG CAPSULE (FP) PO SCH (09:39)
[2019-01-03] MEDS: HEPARIN NA (PORCINE) 5,000 UNITS/ML 1ML VIAL SQ SCH ×2 (09:39→21:53)
[2019-01-03] MEDS: amLODIPine BESYLATE 5 MG TABLET (FP) PO SCH (09:39)
--- NOTE | 2019-01-03 12:29 | PN ---
Progress Note, Physician History of Present Illness: patient stable no new issues abd pain better - Current Medication List Current Medications: Active Medications Acetaminophen (Tylenol -) 500 mg PO Q6H PRN PRN Reason: PAIN SCALE 4-6 Last Admin: 01/02/19 16:24 Dose: 500 mg Amlodipine Besylate (Norvasc -) 5 mg PO DAILY [facility] Last Admin: 01/03/19 09:39 Dose: 5 mg Heparin Sodium (Porcine) (Heparin -) 5,000 unit SQ BID [facility] Last Admin: 01/03/19 09:39 Dose: 5,000 unit Hydrochlorothiazide (Hctz -) 12.5 mg PO DAILY [facility] Last Admin: 01/03/19 09:39 Dose: 12.5 mg Piperacillin Sod/Tazobactam (Sod 3.375 gm/ Dextrose) 50 mls @ 100 mls/hr IVPB Q8H-IV [facility]; Protocol Last Admin: 01/03/19 09:38 Dose: 100 mls/hr Lactated Ringer's (Lactated Ringers Solution) 1,000 ml in 1,000 mls @ 100 mls/ hr IV ASDIR [facility] Last Admin: 01/02/19 23:50 Dose: 100 mls/hr Ondansetron HCl (Zofran Injection) 4 mg IVPUSH Q6H PRN PRN Reason: NAUSEA - Objective Vital Signs: Vital Signs Temperature 99.1 F 01/03/19 06:29 Pulse Rate 78 01/03/19 06:29 Respiratory Rate 20 01/03/19 06:29 Blood Pressure 118/77 01/03/19 06:29 O2 Sat by Pulse Oximetry (%) 97 01/02/19 21:00 Constitutional: Yes: No Distress, Calm Cardiovascular: Yes: Regular Rate and Rhythm Respiratory: Yes: Regular, CTA Bilaterally Gastrointestinal: Yes: Soft, Tenderness Musculoskeletal: Yes: WNL Extremities: Yes: WNL Neurological: Yes: Alert, Oriented Psychiatric: Yes: Alert, Oriented Labs: CBC, BMP 01/03/19 06:00 01/03/19 06:00 INR, PTT INR 0.97 (0.83-1.09) 12/30/18 04:10 Assessment/Plan Problem List - Problems (1) HTN (hypertension) Code(s): I10 - ESSENTIAL (PRIMARY) HYPERTENSION (2) Cholecystitis Code(s): K81.9 - CHOLECYSTITIS, UNSPECIFIED 3 leukocytosis abd pain plan continue abx abd pain improving wbc normalized rest as per the team
--- NOTE | 2019-01-03 16:28 | PN ---
Progress Note, Physician Chief Complaint: Mr Murray is without complaint. Denies cp, sob, n/v. Abdominal pain resolved. - Current Medication List Current Medications: Active Medications Acetaminophen (Tylenol -) 500 mg PO Q6H PRN PRN Reason: PAIN SCALE 4-6 Last Admin: 01/02/19 16:24 Dose: 500 mg Amlodipine Besylate (Norvasc -) 5 mg PO DAILY [facility] Last Admin: 01/03/19 09:39 Dose: 5 mg Heparin Sodium (Porcine) (Heparin -) 5,000 unit SQ BID [facility] Last Admin: 01/03/19 09:39 Dose: 5,000 unit Hydrochlorothiazide (Hctz -) 12.5 mg PO DAILY [facility] Last Admin: 01/03/19 09:39 Dose: 12.5 mg Piperacillin Sod/Tazobactam (Sod 3.375 gm/ Dextrose) 50 mls @ 100 mls/hr IVPB Q8H-IV [facility]; Protocol Last Admin: 01/03/19 09:38 Dose: 100 mls/hr Lactated Ringer's (Lactated Ringers Solution) 1,000 ml in 1,000 mls @ 100 mls/ hr IV ASDIR [facility] Last Admin: 01/02/19 23:50 Dose: 100 mls/hr Ondansetron HCl (Zofran Injection) 4 mg IVPUSH Q6H PRN PRN Reason: NAUSEA - Objective Vital Signs: Vital Signs Temperature 37.1 C 01/03/19 14:34 Pulse Rate 88 01/03/19 14:34 Respiratory Rate 20 01/03/19 06:29 Blood Pressure 139/89 01/03/19 14:34 O2 Sat by Pulse Oximetry (%) 95 01/03/19 09:00 Constitutional: Yes: No Distress, Calm, Obese Cardiovascular: Yes: Regular Rate and Rhythm. No: Gallop, Murmur, Rub Respiratory: Yes: Regular, CTA Bilaterally. No: Rales, Rhonchi, Wheezes Gastrointestinal: Yes: Normal Bowel Sounds, Soft, Tenderness (RUQ, very slight) . No: Distention Extremities: Yes: WNL Edema: No Labs: CBC, BMP 01/03/19 06:00 01/03/19 06:00 INR, PTT INR 0.97 (0.83-1.09) 12/30/18 04:10 Problem List - Problems (1) HTN (hypertension) Code(s): I10 - ESSENTIAL (PRIMARY) HYPERTENSION (2) Cholecystitis Code(s): K81.9 - CHOLECYSTITIS, UNSPECIFIED Assessment/Plan -much improved -continue current management -plan for discharge tomorrow
[2019-01-03] MEDS: LACTATED RINGERS SOLUTION 1,000 ML/1,000 ML INFUS.BAG IV SCH ×2 (18:54→21:53)
[2019-01-04] MEDS ORDERED: PIPERACILLIN/TAZOBACTAM 3.375 GM VIAL IVPB ONE ×2 (01:27→09:33)
[2019-01-04] MEDS ORDERED: DEXTROSE 5%-WATER - 50 ML IVPB ONE ×2 (01:27→09:33)
[2019-01-04] MEDS: PIPERACILLIN/TAZOB 3.375 GM 3.375 GM in DEXTROSE 5%-WATER - 50 ML IVPB SCH ×2 (01:49→09:37)
[2019-01-04 07:28] LABS: BASO % 0.6 % (0-2.0); EOS % 1.3 % (0-4.5); HEMATOCRIT 35.4 % (35.4-49); HEMOGLOBIN 12.3 GM/dL (11.7-16.9); LYMPH % 19.4 % (8-40); MCH 30.2 pg (25.7-33.7); MCHC 34.8 g/dl (32.0-35.9); MEAN CELL VOLUME 86.8 fl (80-96); MEAN PLT VOLUME 7.6 fl (7.5-11.1); MONO % 9.1 % (3.8-10.2); NEUT % 69.6 % (42.8-82.8); PLATELET COUNT 224 K/MM3 (134-434); RBC 4.08 M/mm3 (4.00-5.60); RDW 13.5 % (11.9-15.9); WHITE BLOOD COUNT 8.4 K/mm3 (4.0-10.0)
[2019-01-04 08:02] LABS: ANION GAP 8 MMOL/L (8-16); BLOOD UREA NITROGEN 6 mg/dL (7-18); CALCIUM 8.6 mg/dL (8.5-10.1); CHLORIDE 106 mmol/L (98-107); CO2 26 mmol/L (21-32); CREATININE 0.8 mg/dL (0.55-1.3); GLUCOSE,RANDOM 89 mg/dL (74-106); MAGNESIUM 2.1 mg/dL (1.8-2.4); PHOSPHOROUS 4.2 mg/dL (2.5-4.9); POTASSIUM 3.4 mmol/L (3.5-5.1); SODIUM 139 mmol/L (136-145)
[2019-01-04 08:20] LABS: BILIRUBIN,DIRECT 0.2 mg/dL (0.0-0.2); BILIRUBIN,TOTAL 0.6 mg/dL (0.2-1); TOT PROT 6.4 g/dl (6.4-8.2)
[2019-01-04] MEDS: HEPARIN NA (PORCINE) 5,000 UNITS/ML 1ML VIAL SQ SCH (09:37)
[2019-01-04] MEDS: HYDROCHLOROTHIAZIDE 12.5 MG CAPSULE (FP) PO SCH (09:37)
[2019-01-04] MEDS: amLODIPine BESYLATE 5 MG TABLET (FP) PO SCH (09:37)
[2019-01-04 10:58] VITALS: BP 128/73; PULSE 83; TEMP 98.6
== END 2019-01-04 12:22 | disposition home or self-care (01) ==
LOC: JER 03:28 → JERBED 09:53 → J6S 11:02
PROVIDERS: ADMIT Internal Medicine; ATTEND Internal Medicine
DX: K81.9 Cholecystitis, unspecified (principal); I10 Essential (primary) hypertension; D72.829 Elevated white blood cell count, unspecified; K76.0 Fatty (change of) liver, not elsewhere classified; N28.89 Other specified disorders of kidney and ureter; E66.9 Obesity, unspecified; Z68.32 Body mass index [BMI] 32.0-32.9, adult
CPT/HCPCS: 36415; 74176-TC; 74177-TC; 76705-TC; 78226-TC; 80048; 80053; 80076; 82550; 83690; 83735; 84100; 84484; 85025; 85610; 86850; 86900; 86901; 93005; 93010; 99284-25; A9537; J0131; J1644; J7030

== ENCOUNTER 2019-01-04 17:59 | Inpatient (IN) | payer OTHER ==
--- NOTE | 2019-01-04 18:03 | PDOC ---
Rapid Medical Evaluation Time Seen by Provider: 01/04/19 18:02 Medical Evaluation: Allergies Allergy/AdvReac Type Severity Reaction Status Date / Time ceftriaxone Allergy Mild Swelling Verified 01/01/19 11:10 01/04/19 18:03 I have performed a brief in-person evaluation of this patient. The patient presents with a chief complaint of: upper abdominal pain- d/c'd today for similar c/o Pertinent physical exam findings: RUQ tenderness. Labs unremarkable this AM. I have ordered the following: IV The patient will proceed to the ED for further evaluation. 01/04/19 18:04 01/04/19 18:05 Discharge Disposition - Diagnosis Epigastric pain - Referrals - Patient Instructions - Post Discharge Activity
--- NOTE | 2019-01-04 18:29 | PDOC ---
History of Present Illness - General Chief Complaint: Pain, Acute Stated Complaint: FEVER Time Seen by Provider: 01/04/19 18:02 History Source: Patient Exam Limitations: No Limitations - History of Present Illness Initial Comments: 01/04/19 18:29 63 year old man with a history of HTN who was discharged this AM for cholecystitis and liver mass that was treated in the hospital with zosyn with imporvments of symptoms and subsequent d/c on augmentin who presents with RUQ and mid epigastric burning rated 2/10 and with inability to eat 2/2 to feelings of fullness. He had a temperature at home of 100.9F that was treated with Tylenol. He has some RUQ pain but notes that it is not worsened from this AM. He denies any chest pain, shortness of breath, diaphoresis. Admits to some diarrhea and urinary urgency. He has no other complaints at bedside. w/u on prior admission: -HIDA: nonfilling at 2 hours consistent with expected acute cholecysitits -CT abdomen and pelvis-cholelithiasis, large hypodense 6x5.2x4.2 in posterior lobe -US abdomen: fatty liver, gallbladder sludge and stones without wall thickening. Trace pericholecystic free fluid. Per surgical notes patient did not have surgical intervention 2/2 needing w/u of liver mass and neurology clearance for general anesthesia before elective surgery. PCP: Rob Past History - Past Medical History Allergies/Adverse Reactions: Allergies Allergy/AdvReac Type Severity Reaction Status Date / Time ceftriaxone Allergy Mild Swelling Verified 01/04/19 18:03 Home Medications: Ambulatory Orders Amlodipine Besylate 1 tab PO DAILY 12/30/18 Hydrochlorothiazide 1 tab PO DAILY 12/30/18 Vitamin B Complex [B Complex] 1 each PO DAILY 12/30/18 Zinc Gluconate-Zinc Picolinate [Zinc] 30 mg PO DAILY 12/30/18 Amox-Tr/K Cl [Augmentin - 875Mg Tablet] 1 tab PO BID #13 tablet 01/04/19 Anemia: No Asthma: No Cancer: No Cardiac Disorders: Yes (murmur, 1st degree block) CVA: No COPD: No CHF: No Dementia: No GI Disorders: No Disorders: No HTN: Yes Hypercholesterolemia: No Liver Disease: No Seizures: No Thyroid Disease: No Other medical history: GALLBLADDER INFECTION - Surgical History Abdominal Surgery: No Appendectomy: No Cardiac Surgery: No Cholecystectomy: No Lung Surgery: No Neurologic Surgery: Yes (BRAIN CLIP) - Immunization History Immunization Up to Date: Yes - Suicide/Smoking/Psychosocial Hx Smoking History: Never smoked Hx Alcohol Use: No Drug/Substance Use Hx: No Review of Systems - Review of Systems Able to Perform ROS?: Yes Comments:: 01/04/19 19:05 GENERAL/CONSTITUTIONAL: + fever or chills. No weakness. HEAD, EYES, EARS, NOSE AND THROAT: No change in vision. No ear pain or discharge. No sore throat. CARDIOVASCULAR: No chest pain or shortness of breath RESPIRATORY: No cough, wheezing, or hemoptysis. GASTROINTESTINAL: + nausea, vomiting, diarrhea GENITOURINARY: No dysuria, frequency, + urgency change in urination. MUSCULOSKELETAL: No joint or muscle swelling or pain. No neck or back pain. SKIN: No rash NEUROLOGIC: No headache, vertigo, loss of consciousness, or change in strength/ sensation. ENDOCRINE: No increased thirst. No abnormal weight change HEMATOLOGIC/LYMPHATIC: No anemia, easy bleeding, or history of blood clots. ALLERGIC/IMMUNOLOGIC: No hives or skin allergy. Is the patient limited French proficient: No *Physical Exam - Vital Signs Last Vital Signs Temp Pulse Resp BP Pulse Ox 99.2 F 95 H 18 124/77 96 01/04/19 18:04 01/04/19 18:04 01/04/19 18:04 01/04/19 18:04 01/04/19 18:04 - Physical Exam Comments: 01/04/19 19:08 GENERAL: Awake, alert, and fully oriented, in no acute distress HEAD: No signs of trauma, normocephalic, atraumatic EYES: PERRLA, EOMI, sclera anicteric, conjunctiva clear ENT: oropharynx clear without exudates. Moist mucosa NECK: Normal ROM, supple, LUNGS: No distress, speaks full sentences, clear to auscultation bilaterally HEART: Regular rate and rhythm, normal S1 and S2, no murmurs, rubs or gallops, peripheral pulses normal and equal bilaterally. ABDOMEN: Soft, + RUQ tenderness, normoactive bowel sounds. No guarding, no rebound. No masses EXTREMITIES : Normal inspection, Normal range of motion, no edema. No clubbing or cyanosis. NEUROLOGICAL: Cranial nerves II through XII grossly intact. Normal speech, no focal sensorimotor deficits SKIN: Warm, Dry, normal turgor, no rashes or lesions noted ED Treatment Course - LABORATORY CBC & Chemistry Diagram: 01/04/19 18:44 01/04/19 18:44 Medical Decision Making - Medical Decision Making 01/04/19 20:20 63 year old man with a history of HTN who was discharged this AM for cholecystitis and liver mass that was treated in the hospital with zosyn with imporvments of symptoms and subsequent d/c on augmentin who presents with RUQ and mid epigastric burning rated 2/10 and with inability to eat 2/2 to feelings of fullness. He had a temperature at home of 100.9F that was treated with Tylenol. He has some RUQ pain but notes that it is not worsened from this AM. He denies any chest pain, shortness of breath, diaphoresis. Admits to some diarrhea and urinary urgency. ED Course ddx ibnlt: acs vs gerd vs cholecysititis cbc, cmp, ua, trop, ekg, cxr, abd us pepcid maalox labwork wnl however wbc increased from this am 8-->11 and patient febrile earlier in the day. pending trop, ekg, final abd us report 01/04/19 20:43 US: echogenic lesion in R hepatic lobe, 3.5cm, gallbladder with sludge w/ multiple stones, thickening and edema and trace pericholecystic free fluid, + sonogrpahic nesbitt's sign, findings with acute cholecysitits EKG: EKG: normal sinus rhythm HR 76, no interval abnormalities, narrow QRS, ST and T wave segments and morphology normal. negative troponin will need admission for further treatment. *DC/Admit/Observation/Transfer Diagnosis at time of Disposition: Cholecystitis - Discharge Dispostion Condition at time of disposition: Fair Decision to Admit order: Yes - Referrals Referrals: Abdirahman Rivas MD [Primary Care Provider] - - Patient Instructions - Post Discharge Activity
[2019-01-04] MEDS ORDERED: FAMOTIDINE 20 MG/50 ML IVPB 20 MG/50 ML MG IVPB ONE ×2 (19:01→19:14)
[2019-01-04] MEDS ORDERED: MAG HYDROX/AL HYDROX/SIMETH -MYLANTA- ORAL SUSPENSION PO ONE (19:01)
[2019-01-04] MEDS ORDERED: MAG HYDROX/AL HYDROX/SIMETH 30 ML UNIT-DOSE CUP ONE (19:14)
[2019-01-04 19:15] LABS: BASO % 0.7 % (0-2.0); EOS % 0.8 % (0-4.5); HEMATOCRIT 37.7 % (35.4-49); HEMOGLOBIN 12.6 GM/dL (11.7-16.9); LYMPH % 14.3 % (8-40); MCH 29.3 pg (25.7-33.7); MCHC 33.5 g/dl (32.0-35.9); MEAN CELL VOLUME 87.3 fl (80-96); MEAN PLT VOLUME 7.3 fl (7.5-11.1); NEUT % 75.2 % (42.8-82.8); PLATELET COUNT 237 K/MM3 (134-434); RBC 4.31 M/mm3 (4.00-5.60); RDW 13.4 % (11.9-15.9); WHITE BLOOD COUNT 11.9 K/mm3 (4.0-10.0)
[2019-01-04 19:33] LABS: PH,URINE 5.5 (5.0-8.0); URINE APPEARANCE CLEAR; URINE BILIRUBIN NEGATIVE (NEGATIVE); URINE COLOR YELLOW; URINE GLUCOSE (UA) NEGATIVE (NEGATIVE); URINE KETONE 1+ (NEGATIVE); URINE LEUK ESTERASE NEGATIVE (NEGATIVE); URINE NITRITE NEGATIVE (NEGATIVE); URINE PROTEIN NEGATIVE (NEGATIVE); URINE UROBILINOGEN 0.2 mg/dL (0.2-1.0)
[2019-01-04 19:37] LABS: ALBUMIN 3.3 g/dl (3.4-5.0); ALK PHOS 51 U/L (45-117); ANION GAP 9 MMOL/L (8-16); BILIRUBIN,TOTAL 0.6 mg/dL (0.2-1); BLOOD UREA NITROGEN 8 mg/dL (7-18); CALCIUM 8.9 mg/dL (8.5-10.1); CHLORIDE 103 mmol/L (98-107); CO2 26 mmol/L (21-32); CREATININE 0.8 mg/dL (0.55-1.3); GLUCOSE,RANDOM 86 mg/dL (74-106); LIPASE 99 U/L (73-393); SGOT/AST 24 U/L (15-37); SGPT/ALT 37 U/L (13-61); SODIUM 138 mmol/L (136-145); TOT PROT 6.9 g/dl (6.4-8.2)
[2019-01-04] MEDS ORDERED: POTASSIUM CHLORIDE TABS 10 MEQ TABLET.ER (FP) PO ONE (19:49)
[2019-01-04] MEDS ORDERED: POTASSIUM CHLORIDE TABS 20 MEQ TABLET.ER (FP) PO ONE (19:53)
[2019-01-04] MEDS ORDERED: POTASSIUM CHLORIDE TABS 10 MEQ TABLET.ER (FP) ONE (19:54)
--- NOTE | 2019-01-04 20:45 | PDOC ---
Documentation entered by Dillon Oscar SCRIBE, acting as scribe for Saskia Chaudhary MD. Saskia Chaudhary MD: This documentation has been prepared by the eugenieeCelestina Renju, SCRIBE, under my direction and personally reviewed by me in its entirety. I confirm that the documentation accurately reflects all work, treatment, procedures, and medical decision making performed by me. Attending Attestation - Resident Resident Name: FrancoprachivaleriyTanvi - HPI HPI: 01/04/19 18:45 63 year old male with a past medical history of hypertension, brain aneurysm clipped 20 years ago, and recent liver cholecystitis who presents to the emergency department for evaluation of right upper quadrant abdominal pain. Patient was admitted to [facility] (12/30-01/03) for similar symptoms and was discharged on augmentin this morning. Patient reports moderate right upper quadrant abdominal pain and epigastric discomfort described as a burning sensation. Patient endorses chills and fever taken orally with tmax of 100.9. Denies chest pain, shortness of breath, nausea, and vomiting. Allergies: Ceftriaxone PCP: Dr. Rivas - Physicial Exam PE: 01/04/19 19:11 GENERAL: Well developed, well nourished. Awake and alert. No acute distress. HEENT: Normocephalic, atraumatic. PERRLA. NECK: Supple. Full ROM. CARDIOVASCULAR: Regular rate and rhythm. No murmurs, rubs, or gallops. PULMONARY: No evidence of respiratory distress. Lungs clear to auscultation bilaterally. No wheezing, rales or rhonchi. ABDOMINAL: (+)Epigastric discomfort upon deep palpation. No rebound or guarding. MUSCULOSKELETAL Normal range of motion at all joints. No bony deformities or tenderness. No CVA tenderness. EXTREMITIES: No cyanosis. No clubbing. No edema. No calf tenderness. SKIN: Warm and dry. Normal capillary refill. No rashes. No jaundice. NEUROLOGICAL: Alert, awake, appropriate. No deficits to light touch and temperature in face, upper extremities and lower extremities. No motor deficits in the in face, upper extremities and lower extremities. Normoreflexic in the upper and lower extremities. Normal speech. Ambulatory. PSYCHIATRIC: Cooperative. Good eye contact. Appropriate mood and affect. - Medical Decision Making 01/04/19 20:21 cbc was wnl hypokalemia k=5 01/04/19 20:44 Abdominal ultrasound reveals acute cholecystitis with multiple gallstones, sludge, pericholecystic fluid and edematous wall. Patient will be admitted for acute cholecystitis
--- NOTE | 2019-01-04 21:34 | PN ---
Teaching Attending Note Name of Resident: Carrington Nuñez ATTENDING PHYSICIAN STATEMENT I saw and evaluated the patient. I reviewed the resident's note and discussed the case with the resident. I agree with the resident's findings and plan as documented. SUBJECTIVE: Patient is a 63 year old man with a PMH of HTN who was discharged today on Augmentin for cholecystitis that was treated in the hospital with zosyn, now presents with RUQ and mid epigastric burning rated 2/10 and with inability to eat due to feelings of fullness. He had a temperature at home of 100.9F that was treated with Tylenol. He has some RUQ pain but notes that it is not worsened from this AM. He denies any chest pain, shortness of breath, diaphoresis. Admits to some diarrhea and urinary urgency. Per surgical notes patient did not have surgical intervention due to recently discovered liver mass that needed further workup and the need for neurology clearance for general anesthesia before elective surgery. His workup during the recent admission showed:-HIDA with nonfilling at 2 hours consistent with expected acute cholecysitits; CT abdomen and pelvis showing cholelithiasis, large hypodense 6x5.2x4.2 mass in posterior lobe (Carvenous hemangioma?) and US abdomen noted fatty liver, gallbladder sludge and stones without wall thickening. Trace pericholecystic free fluid. OBJECTIVE: Alert Vital Signs Period Temp Pulse Resp BP Sys/Arriaga Pulse Ox Last 24 Hr 99.2 F 95 18 124/77 96 HEENT: No Jaundice, eye redness or discharge, PERRLA, EOMI. Normocephalic, atraumatic. External ears are normal and hearing is grossly intact. No nasal discharge. Neck: Supple, nontender. No palpable adenopathy or thyromegaly. No JVD Chest: Good effort. Clear to auscultation and percussion. Heart: Regular. No S3, rub or murmur Abdomen: Not distended, soft, RUQ tenderness and no HSM. No rebound or guarding. Normal bowel sounds. Ext: Peripheral pulses intact. No leg edema. Skin: Warm and dry. No petechiae, rash or ecchymosis. Neuro: Alert. Oriented x3. CN 2-12 grossly intact. Sensation grossly intact in all four extremities and DTR are symmetric. Psych: Appropriate mood and affect. Good insight. Current Medications Generic Name Dose Route Start Last Admin Trade Name Isela PRN Reason Stop Dose Admin Heparin Sodium (Porcine) 5,000 unit 01/05/19 06:00 Heparin - SQ TID BELA Dextrose/Sodium Chloride 1,000 mls @ 83 mls/hr 01/04/19 21:45 D5-1/2ns - IV ASDIR BELA Metronidazole 500 mg in 100 mls @ 100 mls/hr 01/04/19 22:00 Flagyl 500mg Premixed Ivpb - IVPB Q6H-IV BELA Levofloxacin 500 mg in 100 mls @ 100 mls/hr 01/04/19 21:50 Levaquin 500 Mg Premixed Ivpb - IVPB 01/04/19 22:49 ONCE ONE Protocol Pantoprazole Sodium 40 mg 01/05/19 10:00 Protonix Iv IVPUSH DAILY [facility] Home Medications Medication Instructions Recorded Amlodipine Besylate 1 tab PO DAILY 12/30/18 Hydrochlorothiazide 1 tab PO DAILY 12/30/18 Vitamin B Complex [B Complex] 1 each PO DAILY 12/30/18 Zinc Gluconate-Zinc Picolinate 30 mg PO DAILY 12/30/18 [Zinc] Amox-Tr/K Cl [Augmentin - 875Mg 1 tab PO BID #13 tablet 01/04/19 Tablet] Abnormal Lab Results 01/04/19 01/04/19 01/04/19 18:44 18:44 18:44 WBC 11.9 H MPV 7.3 L Absolute Neuts (auto) 9.0 H Potassium 3.0 L Albumin 3.3 L Urine Ketones 1+ H ASSESSMENT AND PLAN: 1. Acute Cholecystitis - Repeat ultrasound today confirmed the findings from his recent admission of cholecystitis. Will keep him NPO, give D51/2 NS, consult surgery and treat with IV Levaquin and Flagyl. Hypokalemia likely due to HCTZ therapy - will ?reduce his dose of HCTZ to 12.5 mg daily, check serum Mg + level and treat with IV and PO KCL. EKG shows NSR with no significant ST-T wave changes and initial troponin is negative. 2. Hypoalbuminemia - Possibly due to combined effects of malnutrition and inflammation associated with comorbid chronic conditions. Will ensure adequate dietary protein intake and also consult musculoskeletal physiotherapist. 3. Obesity Counseled on the risks associated with obesity. Will provide patient all the necessary assistance, counseling and positive reinforcement to facilitate weight loss. Consult musculoskeletal physiotherapist. 4. Hypertension - Restart outpatient antihypertensive drugs and revise regimen to ensure smooth [id number] good BP control. Nonpharmacologic measures to control hypertension like weight loss, salt restriction and exercise discussed. 5. DVT prophylaxis - Lovenox 40 mg SQ q 24 hours. 6. Advance directives - Full code
--- NOTE | 2019-01-04 21:57 | HP ---
CHIEF COMPLAINT: abd fullness PCP: Dr. Rivas HISTORY OF PRESENT ILLNESS: Patient is a 63 yo M with a PMHx of HTN, presented today because of abdominal fullness and fever. Patient was discharged today from the hospital for cholecystitis. He was admitted for almost a week and was medically treated with antibiotics and discharged on Augmentin today. The plan was to have elective cholecystectomy in about 6 weeks. Patient said when he got home he felt abdominal fullness and had a fever of 100.9. He said he had 2/10 RUQ pain, non radiating and burning in nature. Patient denies chest pain, nausea , vomiting, diarrhea, cough, SOB, dizziness. ER course was notable for: (1) Abd US: gallbladder w/ sludge and stones. Thickening and edema and trace of pericholecystic fluid. (2) WBC 11.9 (discharged with 8.4) Recent Travel: denies PAST MEDICAL HISTORY: brain aneurysm clip 25 years ago. Social History: Smoking: quit 30 years ago Drugs: denies Family History: mother: dementia, htn father: HTN Brother: CVA Sister: alzheimers Allergies ceftriaxone Allergy (Mild, Verified 01/04/19 18:03) Swelling HOME MEDICATIONS: Home Medications Medication Instructions Recorded Amlodipine Besylate 1 tab PO DAILY 12/30/18 Hydrochlorothiazide 1 tab PO DAILY 12/30/18 Vitamin B Complex [B Complex] 1 each PO DAILY 12/30/18 Zinc Gluconate-Zinc Picolinate 30 mg PO DAILY 12/30/18 [Zinc] Amox-Tr/K Cl [Augmentin - 875Mg 1 tab PO BID #13 tablet 01/04/19 Tablet] REVIEW OF SYSTEMS CONSTITUTIONAL: fevers, chills, loss of appetite Absent: diaphoresis, generalized weakness, malaise, weight change HEENT: Absent: rhinorrhea, nasal congestion, throat pain, throat swelling, difficulty swallowing, mouth swelling, ear pain, eye pain, visual changes CARDIOVASCULAR: Absent: chest pain, syncope, palpitations, irregular heart rate, lightheadedness , peripheral edema RESPIRATORY: Absent: cough, shortness of breath, dyspnea with exertion, orthopnea, wheezing, stridor, hemoptysis GASTROINTESTINAL: abd pain Absent: abdominal distension, nausea, vomiting, diarrhea, constipation, melena, hematochezia GENITOURINARY: Absent: dysuria, frequency, urgency, hesitancy, hematuria, flank pain, genital pain MUSCULOSKELETAL: Absent: myalgia, arthralgia, joint swelling, back pain, neck pain SKIN: Absent: rash, itching, pallor HEMATOLOGIC/IMMUNOLOGIC: Absent: easy bleeding, easy bruising, lymphadenopathy, frequent infections ENDOCRINE: Absent: unexplained weight gain, unexplained weight loss, heat intolerance, cold intolerance NEUROLOGIC: Absent: headache, focal weakness or paresthesias, dizziness, unsteady gait, seizure, mental status changes, bladder or bowel incontinence PHYSICAL EXAMINATION Vital Signs - 24 hr 01/04/19 18:04 Temperature 99.2 F Pulse Rate 95 H Respiratory 18 Rate Blood Pressure 124/77 O2 Sat by Pulse 96 Oximetry (%) GENERAL: Awake, alert, and fully oriented, in no acute distress. HEAD: Normal with no signs of trauma. EYES: Pupils equal, round and reactive to light, extraocular movements intact, sclera anicteric, conjunctiva clear. EARS, NOSE, THROAT: oropharynx clear without exudates. dry mucous membranes. NECK: supple without lymphadenopathy, JVD, or masses. LUNGS: Breath sounds equal, clear to auscultation bilaterally. No wheezes, and no crackles. HEART: Regular rate and rhythm, normal S1 and S2 without murmur, rub or gallop. ABDOMEN: Soft,+ BS, RUQ tenderness, +nesbitt sign LOWER EXTREMITIES: 2+ pulses, warm, well-perfused. No calf tenderness. No peripheral edema. NEUROLOGICAL: Cranial nerves II-XII intact. Normal speech. Normal gait. Laboratory Results - last 24 hr 01/04/19 01/04/19 01/04/19 18:44 18:44 18:44 WBC 11.9 H RBC 4.31 Hgb 12.6 Hct 37.7 MCV 87.3 MCH 29.3 MCHC 33.5 RDW 13.4 Plt Count 237 MPV 7.3 L Absolute Neuts (auto) 9.0 H Neutrophils % 75.2 Lymphocytes % 14.3 D Monocytes % 9.0 Eosinophils % 0.8 Basophils % 0.7 Nucleated RBC % 0 Sodium 138 Potassium 3.0 L Chloride 103 Carbon Dioxide 26 Anion Gap 9 BUN 8 Creatinine 0.8 Creat Clearance w eGFR 97.63 Random Glucose 86 Calcium 8.9 Total Bilirubin 0.6 AST 24 ALT 37 Alkaline Phosphatase 51 Troponin I < 0.02 Total Protein 6.9 Albumin 3.3 L Lipase 99 Urine Color Yellow Urine Appearance Clear Urine pH 5.5 Ur Specific [place] 1.011 Urine Protein Negative Urine Glucose (UA) Negative Urine Ketones 1+ H Urine Blood Negative Urine Nitrite Negative Urine Bilirubin Negative Urine Urobilinogen 0.2 Ur Leukocyte Esterase Negative ASSESSMENT/PLAN: 63 yo M with a PMHx of HTN, presented today because of abdominal fullness and fever. #Cholecystitis -not septic -WBC 11.9 (up from 8) -NPO -IV fluids -IV abx: Levaquin/Flagyl (claims he is allergic to ceftriaxone. he was given Zosyn last hospitalization with no reactions ) -Surgery consulted: Dr. Yusuf -monitor vital signs #Liver mass: -CT last admission: large lesion in the R hepatic lobe, measuring 6 x 5 cm representing cavernous hemangioma. -consider GI consult. Patient is requesting to see a GI doctor for more information. #FEN -Iv fluids D5 1/ NS @83 -monitor lytes -NPO #Dvt Ppx -hep sq Visit type - Emergency Visit Emergency Visit: Yes ED Registration Date: 01/04/19 Care time: The patient presented to the Emergency Department on the above date and was hospitalized for further evaluation of their emergent condition. - New Patient This patient is new to me today: Yes Date on this admission: 01/09/19 - Critical Care Critical Care patient: No
[2019-01-04] MEDS: DEXTROSE 5%-0.45% SALINE 1,000 ML IV SCH (22:41)
[2019-01-05 05:43] VITALS: BMI 34.9
[2019-01-05] MEDS: HEPARIN NA (PORCINE) 5,000 UNITS/ML 1ML VIAL SQ SCH (06:00)
[2019-01-05 07:21] LABS: HEMATOCRIT 34.7 % (35.4-49); MCHC 34.7 g/dl (32.0-35.9); MEAN CELL VOLUME 86.4 fl (80-96); MEAN PLT VOLUME 7.3 fl (7.5-11.1); PLATELET COUNT 240 K/MM3 (134-434); RBC 4.02 M/mm3 (4.00-5.60); RDW 13.5 % (11.9-15.9); WHITE BLOOD COUNT 9.3 K/mm3 (4.0-10.0)
[2019-01-05 07:44] LABS: ALBUMIN 3.1 g/dl (3.4-5.0); ALK PHOS 49 U/L (45-117); ANION GAP 5 MMOL/L (8-16); BILIRUBIN,TOTAL 0.6 mg/dL (0.2-1); BLOOD UREA NITROGEN 7 mg/dL (7-18); CALCIUM 8.4 mg/dL (8.5-10.1); CHLORIDE 106 mmol/L (98-107); CO2 30 mmol/L (21-32); CREATININE 0.9 mg/dL (0.55-1.3); GLUCOSE,RANDOM 82 mg/dL (74-106); MAGNESIUM 2.1 mg/dL (1.8-2.4); PHOSPHOROUS 3.3 mg/dL (2.5-4.9); POTASSIUM 3.5 mmol/L (3.5-5.1); SGOT/AST 25 U/L (15-37); SGPT/ALT 39 U/L (13-61); SODIUM 142 mmol/L (136-145); TOT PROT 6.5 g/dl (6.4-8.2)
[2019-01-05 08:00] LABS: INR 1.34 (0.83-1.09); PROTHROMBIN TIME (PATIENT) 15.8 SEC (9.7-13.0)
--- NOTE | 2019-01-05 08:27 | EKG ---
Test Reason : Blood Pressure : / mmHG Vent. Rate : 076 BPM Atrial Rate : 076 BPM P-R Int : 134 ms QRS Dur : 092 ms QT Int : 364 ms P-R-T Axes : 055 034 023 degrees QTc Int : 409 ms NORMAL SINUS RHYTHM POSSIBLE LEFT ATRIAL ENLARGEMENT BORDERLINE ECG WHEN COMPARED WITH ECG OF 30-DEC-2018 04:04, NO SIGNIFICANT CHANGE WAS FOUND Confirmed by RICKIE BOYD, CONNOR ([id number]) on 01/05/2019 8:27:17 AM Referred By: Confirmed By:CONNOR DAMIAN MD
--- NOTE | 2019-01-05 09:47 | PN ---
Progress Note (short form) - Note Progress Note: surgery pt seen and examined. 63m treated conservatively for acute cholecystitis, discharged yesterday and returned the same day not feeling well. low grade fever yesterday and wbc normal today. u/s still consistent with cholecystitis abd- soft, ruq tenderness Plan- acute cholecystitis. failed conservative management. recommend perc drainage and interval cholecystectomy. can also re-attemp iv abx and switch to po again. liver mass- needs w/u history aneurysm- needs neuro eval prior to general anesthesia should have cholecystectomy in 3-4 weeks if drained or 6-8 weeks if not drained after neuro eval and liver mass w/u. would not operate now during inflammatory phase of process.
[2019-01-05] MEDS: DEXTROSE 5%-0.45% SALINE 1,000 ML IV SCH (10:28)
[2019-01-05] MEDS: ZINC SULFATE 220 MG CAPSULE (FP) PO SCH (10:38)
[2019-01-05] MEDS: VITAMIN B COMPLEX W/C COMBO TABLET (FP) PO SCH (10:38)
[2019-01-05] MEDS: amLODIPine BESYLATE 5 MG TABLET (FP) PO SCH (10:38)
[2019-01-05] MEDS: PANTOPRAZOLE SODIUM 40 MG VIAL IVPUSH SCH (10:39)
[2019-01-05] MEDS: ONDANSETRON 4 MG/2 ML VIAL IVPUSH PRN (13:18)
[2019-01-05] MEDS: morphine SULFATE 4 MG/ML VIAL IVPUSH PRN ×2 (16:31→20:27)
--- NOTE | 2019-01-05 18:14 | PN ---
Teaching Attending Note Name of Resident: Suresh Joseph ATTENDING PHYSICIAN STATEMENT I saw and evaluated the patient. I reviewed the resident's note and discussed the case with the resident. I agree with the resident's findings and plan as documented with exceptions below. SUBJECTIVE: Patient seen and examined. RUQ abdominal pain but better. OBJECTIVE: Vital Signs Period Temp Pulse Resp BP Sys/Arriaga Pulse Ox Last 24 Hr 98.4 F-99.8 F 69-114 18-22 119-163/65-88 97-100 Intake & Output 01/02/19 01/03/19 01/04/19 01/05/19 23:59 23:59 23:59 23:59 Intake Total 1030 Output Total 400 Balance 630 Weight 180 lb 184 lb 9 oz Time of evaluation: 10:30 AM General: sitting in bed in no acute distress Chest: CTAB, no rales or wheezing Abdomen: soft, obese, RUQ tenderness, positive Wallace's sign, positive bowel sounds, no voluntary or involuntary guarding present Extremities: no edema CVS:S1S2 regular Home Medications Medication Instructions Recorded Amlodipine Besylate 1 tab PO DAILY 12/30/18 Hydrochlorothiazide 1 tab PO DAILY 12/30/18 Vitamin B Complex [B Complex] 1 each PO DAILY 12/30/18 Zinc Gluconate-Zinc Picolinate 30 mg PO DAILY 12/30/18 [Zinc] Amox-Tr/K Cl [Augmentin - 875Mg 1 tab PO BID #13 tablet 01/04/19 Tablet] Active Medications Amlodipine Besylate (Norvasc -) 5 mg PO DAILY [facility] Last Admin: 01/05/19 10:38 Dose: 5 mg Heparin Sodium (Porcine) (Heparin -) 5,000 unit SQ TID [facility] Last Admin: 01/05/19 06:00 Dose: 5,000 unit Dextrose/Sodium Chloride (D5-1/2ns -) 1,000 mls @ 83 mls/hr IV ASDIR [facility] Last Admin: 01/05/19 10:28 Dose: 83 mls/hr Metronidazole (Flagyl 500mg Premixed Ivpb -) 500 mg in 100 mls @ 100 mls/hr IVPB Q8H-IV [facility] Morphine Sulfate (Morphine Sulfate) 1 mg IVPUSH Q4H PRN PRN Reason: PAIN LEVEL 6-10 Last Admin: 01/05/19 16:31 Dose: 1 mg Multivitamins (Total B With C -) 1 each PO DAILY [facility] Last Admin: 01/05/19 10:38 Dose: 1 each Ondansetron HCl (Zofran Injection) 4 mg IVPUSH Q6H PRN PRN Reason: NAUSEA AND/OR VOMITING Last Admin: 01/05/19 13:18 Dose: 4 mg Pantoprazole Sodium (Protonix Iv) 40 mg IVPUSH DAILY [facility] Last Admin: 01/05/19 10:39 Dose: 40 mg Zinc Sulfate (Orazinc -) 220 mg PO DAILY [facility] Last Admin: 01/05/19 10:38 Dose: 220 mg Laboratory Results - last 24 hr 01/04/19 01/04/19 01/04/19 18:44 18:44 18:44 WBC 11.9 H RBC 4.31 Hgb 12.6 Hct 37.7 MCV 87.3 MCH 29.3 MCHC 33.5 RDW 13.4 Plt Count 237 MPV 7.3 L Absolute Neuts (auto) 9.0 H Neutrophils % 75.2 Lymphocytes % 14.3 D Monocytes % 9.0 Eosinophils % 0.8 Basophils % 0.7 Nucleated RBC % 0 PT with INR INR Sodium 138 Potassium 3.0 L Chloride 103 Carbon Dioxide 26 Anion Gap 9 BUN 8 Creatinine 0.8 Creat Clearance w eGFR 97.63 Random Glucose 86 Calcium 8.9 Phosphorus Magnesium Total Bilirubin 0.6 AST 24 ALT 37 Alkaline Phosphatase 51 Troponin I < 0.02 Total Protein 6.9 Albumin 3.3 L Lipase 99 Urine Color Yellow Urine Appearance Clear Urine pH 5.5 Ur Specific [place] 1.011 Urine Protein Negative Urine Glucose (UA) Negative Urine Ketones 1+ H Urine Blood Negative Urine Nitrite Negative Urine Bilirubin Negative Urine Urobilinogen 0.2 Ur Leukocyte Esterase Negative 01/05/19 01/05/19 01/05/19 06:05 06:05 06:05 WBC 9.3 RBC 4.02 Hgb 12.0 Hct 34.7 L MCV 86.4 MCH 30.0 MCHC 34.7 RDW 13.5 Plt Count 240 MPV 7.3 L Absolute Neuts (auto) Neutrophils % Lymphocytes % Monocytes % Eosinophils % Basophils % Nucleated RBC % PT with INR 15.80 H INR 1.34 H Sodium 142 Potassium 3.5 Chloride 106 Carbon Dioxide 30 Anion Gap 5 L BUN 7 Creatinine 0.9 Creat Clearance w eGFR 85.23 Random Glucose 82 Calcium 8.4 L Phosphorus 3.3 Magnesium 2.1 Total Bilirubin 0.6 AST 25 ALT 39 Alkaline Phosphatase 49 Troponin I Total Protein 6.5 Albumin 3.1 L Lipase Urine Color Urine Appearance Urine pH Ur Specific [place] Urine Protein Urine Glucose (UA) Urine Ketones Urine Blood Urine Nitrite Urine Bilirubin Urine Urobilinogen Ur Leukocyte Esterase US results reviewed ASSESSMENT AND PLAN: 63 yom with PMhx of HTN, Brain aneurysm clipping 22 years ago, recently admitted with acute cholecystitis, discharged on augmentin comes back with persistent abdominal pain and acute cholecysititis -Acute cholecystitis, failure of conservative management -HTN -Brain aneurysm clipping 22 years ago -Suspected liver hemangioma Plan: Inability to tolerated PO this AM. Discussed with Dr. Yusuf/Dr. Daley, s/p right cholecystostomy tube placement. Follow up cultures. Levaquin/flagyl day 2. NPO, advance PO in AM as tolerated DVTPPX lovenox Dispo in 2-3 days if continues to improve on PO abx with outpatient surgery follow up. Plan discussed with patient and nursing, all questions answered.
--- NOTE | 2019-01-05 18:21 | PN ---
Physical Exam: SUBJECTIVE: Patient seen and examined at bedside this morning. Pt states he some abdominal fullness and pain in RUQ like on previous admission. He would like to proceed with perc drainage of his gallbladder after speaking with surgeon this AM. OBJECTIVE: Vital Signs Period Temp Pulse Resp BP Sys/Arriaga Pulse Ox Last 24 Hr 98.4 F-99.8 F 69-114 18-22 119-163/65-88 97-100 GENERAL: The patient is awake, alert, and fully oriented, in no acute distress. EYES: extraocular movements intact, sclera anicteric, conjunctiva clear. No ptosis. ENT: Ears normal, nares patent NECK: Trachea midline, full range of motion, supple. LUNGS: Breath sounds equal, clear to auscultation bilaterally HEART: Regular rate and rhythm, S1, S2 ABDOMEN: Soft, RUQ tenderness, murphys negative, nondistended, normoactive bowel sounds EXTREMITIES: warm, well-perfused, no edema. NEUROLOGICAL: Cranial nerves II through XII grossly intact. Normal speech, gait not observed. PSYCH: Normal mood, normal affect. SKIN: Warm, dry Laboratory Results - last 24 hr 01/04/19 01/04/19 01/04/19 18:44 18:44 18:44 WBC 11.9 H RBC 4.31 Hgb 12.6 Hct 37.7 MCV 87.3 MCH 29.3 MCHC 33.5 RDW 13.4 Plt Count 237 MPV 7.3 L Absolute Neuts (auto) 9.0 H Neutrophils % 75.2 Lymphocytes % 14.3 D Monocytes % 9.0 Eosinophils % 0.8 Basophils % 0.7 Nucleated RBC % 0 PT with INR INR Sodium 138 Potassium 3.0 L Chloride 103 Carbon Dioxide 26 Anion Gap 9 BUN 8 Creatinine 0.8 Creat Clearance w eGFR 97.63 Random Glucose 86 Calcium 8.9 Phosphorus Magnesium Total Bilirubin 0.6 AST 24 ALT 37 Alkaline Phosphatase 51 Troponin I < 0.02 Total Protein 6.9 Albumin 3.3 L Lipase 99 Urine Color Yellow Urine Appearance Clear Urine pH 5.5 Ur Specific [place] 1.011 Urine Protein Negative Urine Glucose (UA) Negative Urine Ketones 1+ H Urine Blood Negative Urine Nitrite Negative Urine Bilirubin Negative Urine Urobilinogen 0.2 Ur Leukocyte Esterase Negative 01/05/19 01/05/19 01/05/19 06:05 06:05 06:05 WBC 9.3 RBC 4.02 Hgb 12.0 Hct 34.7 L MCV 86.4 MCH 30.0 MCHC 34.7 RDW 13.5 Plt Count 240 MPV 7.3 L Absolute Neuts (auto) Neutrophils % Lymphocytes % Monocytes % Eosinophils % Basophils % Nucleated RBC % PT with INR 15.80 H INR 1.34 H Sodium 142 Potassium 3.5 Chloride 106 Carbon Dioxide 30 Anion Gap 5 L BUN 7 Creatinine 0.9 Creat Clearance w eGFR 85.23 Random Glucose 82 Calcium 8.4 L Phosphorus 3.3 Magnesium 2.1 Total Bilirubin 0.6 AST 25 ALT 39 Alkaline Phosphatase 49 Troponin I Total Protein 6.5 Albumin 3.1 L Lipase Urine Color Urine Appearance Urine pH Ur Specific [place] Urine Protein Urine Glucose (UA) Urine Ketones Urine Blood Urine Nitrite Urine Bilirubin Urine Urobilinogen Ur Leukocyte Esterase Active Medications Generic Name Dose Route Start Last Admin Trade Name Freq PRN Reason Stop Dose Admin Amlodipine Besylate 5 mg 01/05/19 10:00 01/05/19 10:38 Norvasc - PO 5 mg DAILY [facility] Administration Heparin Sodium (Porcine) 5,000 unit 01/05/19 06:00 01/05/19 06:00 Heparin - SQ 5,000 unit TID [facility] Administration Dextrose/Sodium Chloride 1,000 mls @ 83 mls/hr 01/04/19 21:45 01/05/19 10:28 D5-1/2ns - IV 83 mls/hr ASDIR [facility] Administration Metronidazole 500 mg in 100 mls @ 100 mls/hr 01/05/19 18:00 Flagyl 500mg Premixed Ivpb - IVPB Q8H-IV [facility] Morphine Sulfate 1 mg 01/05/19 15:57 01/05/19 16:31 Morphine Sulfate IVPUSH 1 mg Q4H PRN Administration PAIN LEVEL 6-10 Multivitamins 1 each 01/05/19 10:00 01/05/19 10:38 Total B With C - PO 1 each DAILY [facility] Administration Ondansetron HCl 4 mg 01/05/19 13:07 01/05/19 13:18 Zofran Injection IVPUSH 4 mg Q6H PRN Administration NAUSEA AND/OR VOMITING Pantoprazole Sodium 40 mg 01/05/19 10:00 01/05/19 10:39 Protonix Iv IVPUSH 40 mg DAILY [facility] Administration Zinc Sulfate 220 mg 01/05/19 10:00 01/05/19 10:38 Orazinc - PO 220 mg DAILY [facility] Administration ASSESSMENT/PLAN: 63 y/o M w/PMH of HTN, brain aneurysm clipping 22 years ago, presents same day after discharge for RUQ pain and abd fullness and fever. Found to have acute calculous cholecystitis. -Acute cholecystitis -surgery recommends IR placed perc drainage w/failed conservative management -pt for cholecystostomy today -c/w levaquin/metronidazole -NPO -monitor drainage -zofran for nausea -morphine 1mg IV q4h PRN for pain -HTN -norvasc 5mg -DVT ppx -EAM -FEN D5 1/2NS @ 83ml/hr Monitor electrolytes NPO -Dispo: Monitor on m/s Visit type - Emergency Visit Emergency Visit: Yes ED Registration Date: 01/04/19 Care time: The patient presented to the Emergency Department on the above date and was hospitalized for further evaluation of their emergent condition. - New Patient This patient is new to me today: Yes Date on this admission: 01/05/19 - Critical Care Critical Care patient: No
[2019-01-06] MEDS: DEXTROSE 5%-0.45% SALINE 1,000 ML IV SCH ×2 (00:36→21:54)
[2019-01-06] MEDS: morphine SULFATE 4 MG/ML VIAL IVPUSH PRN (05:41)
[2019-01-06 07:08] LABS: BASO % 0.4 % (0-2.0); EOS % 0.3 % (0-4.5); HEMATOCRIT 35.8 % (35.4-49); HEMOGLOBIN 12.3 GM/dL (11.7-16.9); LYMPH % 16.2 % (8-40); MCH 29.8 pg (25.7-33.7); MCHC 34.4 g/dl (32.0-35.9); MEAN CELL VOLUME 86.6 fl (80-96); MEAN PLT VOLUME 7.2 fl (7.5-11.1); MONO % 7.4 % (3.8-10.2); NEUT % 75.7 % (42.8-82.8); PLATELET COUNT 265 K/MM3 (134-434); RBC 4.13 M/mm3 (4.00-5.60); RDW 13.3 % (11.9-15.9)
[2019-01-06 07:43] LABS: BILIRUBIN,TOTAL 0.4 mg/dL (0.2-1); CALCIUM 8.2 mg/dL (8.5-10.1); CREATININE 0.8 mg/dL (0.55-1.3); MAGNESIUM 2.2 mg/dL (1.8-2.4); POTASSIUM 3.3 mmol/L (3.5-5.1); TOT PROT 6.2 g/dl (6.4-8.2)
[2019-01-06] MEDS: amLODIPine BESYLATE 5 MG TABLET (FP) PO SCH (10:07)
[2019-01-06] MEDS: VITAMIN B COMPLEX W/C COMBO TABLET (FP) PO SCH (10:08)
[2019-01-06] MEDS: PANTOPRAZOLE SODIUM 40 MG VIAL IVPUSH SCH (10:08)
[2019-01-06] MEDS: ZINC SULFATE 220 MG CAPSULE (FP) PO SCH (10:08)
[2019-01-06] MEDS: HEPARIN NA (PORCINE) 5,000 UNITS/ML 1ML VIAL SQ SCH ×2 (14:09→21:54)
[2019-01-06] MEDS ORDERED: morphine SULFATE 4 MG/ML VIAL IVPUSH PRN (15:57)
[2019-01-06] MEDS: ONDANSETRON 4 MG/2 ML VIAL IVPUSH PRN (16:14)
--- NOTE | 2019-01-06 17:51 | PN ---
Physical Exam: SUBJECTIVE: Patient seen and examined OBJECTIVE: Vital Signs Period Temp Pulse Resp BP Sys/Arriaga Pulse Ox Last 24 Hr 98 F-98.7 F 73-83 18-20 111-135/66-80 94-99 GENERAL: The patient is awake, alert, and fully oriented, in no acute distress. LUNGS: Breath sounds equal, clear to auscultation bilaterally HEART: Regular rate and rhythm, S1, S2 ABDOMEN: Soft, nontender, nondistended, hypoactive BS. R sided perc cholesystostomy. EXTREMITIES: warm, well-perfused, no edema. NEUROLOGICAL: Cranial nerves II through XII grossly intact. Normal speech PSYCH: Normal mood, normal affect. SKIN: Warm, dry Laboratory Results - last 24 hr 01/06/19 01/06/19 06:00 06:00 WBC 9.0 RBC 4.13 Hgb 12.3 Hct 35.8 MCV 86.6 MCH 29.8 MCHC 34.4 RDW 13.3 Plt Count 265 MPV 7.2 L Absolute Neuts (auto) 6.8 Neutrophils % 75.7 Lymphocytes % 16.2 Monocytes % 7.4 Eosinophils % 0.3 Basophils % 0.4 Nucleated RBC % 0 Sodium 142 Potassium 3.3 L Chloride 108 H Carbon Dioxide 28 Anion Gap 6 L BUN 7 Creatinine 0.8 Est GFR (CKD-EPI)AfAm 110.19 Est GFR (CKD-EPI)NonAf 95.07 Random Glucose 116 H Calcium 8.2 L Phosphorus 2.0 L Magnesium 2.2 Total Bilirubin 0.4 AST 35 ALT 51 Alkaline Phosphatase 52 Total Protein 6.2 L Albumin 3.0 L Active Medications Generic Name Dose Route Start Last Admin Trade Name Isela PRN Reason Stop Dose Admin Amlodipine Besylate 5 mg 01/05/19 10:00 01/06/19 10:07 Norvasc - PO 5 mg DAILY [facility] Administration Heparin Sodium (Porcine) 5,000 unit 01/05/19 06:00 01/06/19 14:09 Heparin - SQ 5,000 unit TID [facility] Administration Dextrose/Sodium Chloride 1,000 mls @ 83 mls/hr 01/04/19 21:45 01/06/19 00:36 D5-1/2ns - IV 83 mls/hr ASDIR [facility] Administration Metronidazole 500 mg in 100 mls @ 100 mls/hr 01/05/19 18:00 01/06/19 10:07 Flagyl 500mg Premixed Ivpb - IVPB 100 mls/hr Q8H-IV [facility] Administration Levofloxacin 500 mg in 100 mls @ 100 mls/hr 01/07/19 10:00 Levaquin 500 Mg Premixed Ivpb - IVPB DAILY [facility] Protocol Morphine Sulfate 1 mg 01/06/19 15:57 Morphine Sulfate IVPUSH Q6H PRN PAIN LEVEL 7 - 10 Multivitamins 1 each 01/05/19 10:00 01/06/19 10:08 Total B With C - PO 1 each DAILY [facility] Administration Ondansetron HCl 4 mg 01/05/19 13:07 01/06/19 16:14 Zofran Injection IVPUSH 4 mg Q6H PRN Administration NAUSEA AND/OR VOMITING Pantoprazole Sodium 40 mg 01/05/19 10:00 01/06/19 10:08 Protonix Iv IVPUSH 40 mg DAILY [facility] Administration Zinc Sulfate 220 mg 01/05/19 10:00 01/06/19 10:08 Orazinc - PO 220 mg DAILY [facility] Administration ASSESSMENT/PLAN: 63 y/o M w/PMH of HTN, brain aneurysm clipping 22 years ago, presents same day after discharge for RUQ pain and abd fullness and fever. Found to have acute calculous cholecystitis. -Acute cholecystitis -s/p perc drainage cholecystostomy -monitor drainage -c/w levaquin/metronidazole -NPO -monitor drainage -zofran for nausea -morphine 1mg IV q4h PRN for pain -HTN -norvasc 5mg -DVT ppx -EAM -FEN D5 1/2NS @ 83ml/hr Monitor electrolytes Clear liquid diet, advance as tolerated -Dispo: Monitor on m/s Visit type - Emergency Visit Emergency Visit: Yes ED Registration Date: 01/04/19 Care time: The patient presented to the Emergency Department on the above date and was hospitalized for further evaluation of their emergent condition. - New Patient This patient is new to me today: No - Critical Care Critical Care patient: No
[2019-01-06] MEDS ORDERED: POTASSIUM CHLORIDE TABS 20 MEQ TABLET.ER (FP) PO ONE (20:00)
[2019-01-06] MEDS ORDERED: NAPH,MB-DB/K PH,MBDB POWDER PACKET PO ONE (20:00)
[2019-01-07] MEDS: HEPARIN NA (PORCINE) 5,000 UNITS/ML 1ML VIAL SQ SCH ×3 (06:22→21:20)
[2019-01-07 07:28] LABS: BASO % 0.5 % (0-2.0); EOS % 1.2 % (0-4.5); HEMATOCRIT 38.8 % (35.4-49); HEMOGLOBIN 13.3 GM/dL (11.7-16.9); LYMPH % 28.5 % (8-40); MCH 29.7 pg (25.7-33.7); MCHC 34.2 g/dl (32.0-35.9); MEAN CELL VOLUME 86.7 fl (80-96); MEAN PLT VOLUME 7.3 fl (7.5-11.1); MONO % 10.8 % (3.8-10.2); PLATELET COUNT 354 K/MM3 (134-434); RBC 4.48 M/mm3 (4.00-5.60); RDW 13.7 % (11.9-15.9); WHITE BLOOD COUNT 6.1 K/mm3 (4.0-10.0)
[2019-01-07 07:44] LABS: ALBUMIN 3.4 g/dl (3.4-5.0); BILIRUBIN,DIRECT 0.2 mg/dL (0.0-0.2); BILIRUBIN,TOTAL 0.4 mg/dL (0.2-1); CALCIUM 8.6 mg/dL (8.5-10.1); CREATININE 1.1 mg/dL (0.55-1.3); MAGNESIUM 2.6 mg/dL (1.8-2.4); PHOSPHOROUS 2.3 mg/dL (2.5-4.9); POTASSIUM 3.9 mmol/L (3.5-5.1)
[2019-01-07] MEDS: VITAMIN B COMPLEX W/C COMBO TABLET (FP) PO SCH (09:49)
[2019-01-07] MEDS: PANTOPRAZOLE SODIUM 40 MG VIAL IVPUSH SCH (09:49)
[2019-01-07] MEDS: amLODIPine BESYLATE 5 MG TABLET (FP) PO SCH (09:49)
[2019-01-07] MEDS: ZINC SULFATE 220 MG CAPSULE (FP) PO SCH (09:49)
--- NOTE | 2019-01-07 15:18 | PN ---
Physical Exam: SUBJECTIVE: Patient seen and examined, improved pain. No nausea, vomiting, tolerating clears well. OBJECTIVE: Vital Signs Period Temp Pulse Resp BP Sys/Arriaga Pulse Ox Last 24 Hr 98 F-98.7 F 71-98 18-18 115-139/72-83 100-100 Intake & Output 01/04/19 01/05/19 01/06/19 01/07/19 23:59 23:59 23:59 23:59 Intake Total 1462 2444 1081 Output Total 500 900 Balance 962 1544 1081 Weight 180 lb 184 lb 9 oz GENERAL: The patient is awake, alert, and fully oriented, in no acute distress. HEAD: Normal with no signs of trauma. EYES: PERRL, extraocular movements intact, sclera anicteric, conjunctiva clear. No ptosis. ENT: Ears normal, nares patent, oropharynx clear without exudates, moist mucous membranes. NECK: Trachea midline, full range of motion, supple. LUNGS: Breath sounds equal, clear to auscultation bilaterally, no wheezes, no crackles, no accessory muscle use. HEART: Regular rate and rhythm, S1, S2 without murmur, rub or gallop. ABDOMEN: Soft, nontender, nondistended, normoactive bowel sounds, no guarding, no rebound, no hepatosplenomegaly, no masses. EXTREMITIES: 2+ pulses, warm, well-perfused, no edema. NEUROLOGICAL: Cranial nerves II through XII grossly intact. Normal speech, gait not observed. PSYCH: Normal mood, normal affect. SKIN: Warm, dry, normal turgor, no rashes or lesions noted Laboratory Results - last 24 hr 01/07/19 01/07/19 06:00 06:00 WBC 6.1 RBC 4.48 Hgb 13.3 Hct 38.8 MCV 86.7 MCH 29.7 MCHC 34.2 RDW 13.7 Plt Count 354 D MPV 7.3 L Absolute Neuts (auto) 3.6 Neutrophils % 59.0 D Lymphocytes % 28.5 D Monocytes % 10.8 H Eosinophils % 1.2 D Basophils % 0.5 Nucleated RBC % 0 Sodium 144 Potassium 3.9 Chloride 110 H Carbon Dioxide 25 Anion Gap 9 BUN 7 Creatinine 1.1 Est GFR (CKD-EPI)AfAm 82.37 Est GFR (CKD-EPI)NonAf 71.07 Random Glucose 102 Calcium 8.6 Phosphorus 2.3 L Magnesium 2.6 H Total Bilirubin 0.4 Direct Bilirubin 0.2 AST 25 ALT 49 Alkaline Phosphatase 51 Total Protein 7.0 Albumin 3.4 Active Medications Generic Name Dose Route Start Last Admin Trade Name Freq PRN Reason Stop Dose Admin Amlodipine Besylate 5 mg 01/05/19 10:00 01/07/19 09:49 Norvasc - PO 5 mg DAILY [facility] Administration Heparin Sodium (Porcine) 5,000 unit 01/05/19 06:00 01/07/19 14:21 Heparin - SQ 5,000 unit TID [facility] Administration Metronidazole 500 mg in 100 mls @ 100 mls/hr 01/05/19 18:00 01/07/19 09:49 Flagyl 500mg Premixed Ivpb - IVPB 100 mls/hr Q8H-IV [facility] Administration Levofloxacin 500 mg in 100 mls @ 100 mls/hr 01/07/19 10:00 01/07/19 09:49 Levaquin 500 Mg Premixed Ivpb - IVPB 100 mls/hr DAILY [facility] Administration Protocol Morphine Sulfate 1 mg 01/06/19 15:57 Morphine Sulfate IVPUSH Q6H PRN PAIN LEVEL 7 - 10 Multivitamins 1 each 01/05/19 10:00 01/07/19 09:49 Total B With C - PO 1 each DAILY [facility] Administration Ondansetron HCl 4 mg 01/05/19 13:07 01/06/19 16:14 Zofran Injection IVPUSH 4 mg Q6H PRN Administration NAUSEA AND/OR VOMITING Pantoprazole Sodium 40 mg 01/05/19 10:00 01/07/19 09:49 Protonix Iv IVPUSH 40 mg DAILY [facility] Administration Zinc Sulfate 220 mg 01/05/19 10:00 01/07/19 09:49 Orazinc - PO 220 mg DAILY [facility] Administration Microbiology 01/05/19 15:00 Bile AFB Smear Concentration - Final 01/05/19 15:00 Bile Mycobacterial Culture - Preliminary 01/05/19 15:00 Bile Gram Stain - Final 01/05/19 15:00 Bile Body Fluid Culture - Preliminary NO AEROBIC GROWTH, 24 HRS 01/05/19 15:00 Bile REBEKAH Preparation - Preliminary 01/05/19 15:00 Bile Fungal Culture - Preliminary ASSESSMENT/PLAN: 63 yom with PMhx of HTN, Brain aneurysm clipping 22 years ago, recently admitted with acute cholecystitis, discharged on augmentin comes back with persistent abdominal pain and acute cholecysititis -Acute cholecystitis, failure of conservative management -HTN -Brain aneurysm clipping 22 years ago -Suspected liver hemangioma Plan: s/p cholecystostomy tube placement 01/06, clinically improved. Advance diet. Outpatient surgery/IR follow up. Cultures neg so far, follow up. levaquin/flagyl day 3. DVTPPX lovenox D/c home in 24-48 hours on po abx if clinically improved and no new concerns. Plan discussed with patient and RN in detail, all questions answered. Visit type - Emergency Visit Emergency Visit: Yes ED Registration Date: 01/04/19 Care time: The patient presented to the Emergency Department on the above date and was hospitalized for further evaluation of their emergent condition. - New Patient This patient is new to me today: No - Critical Care Critical Care patient: No - Discharge Referral Referred to [facility] Med P.C.: No
[2019-01-08] MEDS: HEPARIN NA (PORCINE) 5,000 UNITS/ML 1ML VIAL SQ SCH (05:32)
[2019-01-08 07:13] LABS: BASO % 0.7 % (0-2.0); EOS % 0.9 % (0-4.5); HEMATOCRIT 37.7 % (35.4-49); HEMOGLOBIN 12.9 GM/dL (11.7-16.9); LYMPH % 34.3 % (8-40); MCH 29.6 pg (25.7-33.7); MCHC 34.1 g/dl (32.0-35.9); MEAN CELL VOLUME 86.7 fl (80-96); MEAN PLT VOLUME 7.1 fl (7.5-11.1); MONO % 10.8 % (3.8-10.2); NEUT % 53.3 % (42.8-82.8); PLATELET COUNT 338 K/MM3 (134-434); RBC 4.35 M/mm3 (4.00-5.60); RDW 13.4 % (11.9-15.9); WHITE BLOOD COUNT 5.8 K/mm3 (4.0-10.0)
[2019-01-08 07:35] LABS: ALBUMIN 3.2 g/dl (3.4-5.0); BILIRUBIN,DIRECT 0.2 mg/dL (0.0-0.2); BILIRUBIN,TOTAL 0.3 mg/dL (0.2-1); CALCIUM 8.7 mg/dL (8.5-10.1); CREATININE 0.9 mg/dL (0.55-1.3); POTASSIUM 3.5 mmol/L (3.5-5.1); TOT PROT 6.3 g/dl (6.4-8.2)
--- NOTE | 2019-01-08 10:43 | DS ---
Physical Exam: SUBJECTIVE: Patient seen and examined, no nausea, vomiting, tolerating diet well. Some discomfort around the tube site but overall much better. OBJECTIVE: Vital Signs Period Temp Pulse Resp BP Sys/Arriaga Pulse Ox Last 24 Hr 98.0 F-98.5 F 68-76 18-18 109-118/65-77 96 Intake & Output 01/05/19 01/06/19 01/07/19 01/08/19 23:59 23:59 23:59 23:59 Intake Total 1462 2444 1731 150 Output Total 500 900 50 180 Balance 962 1544 1681 -30 Weight 184 lb 9 oz PHYSICAL EXAM GENERAL: The patient is awake, alert, and fully oriented, in no acute distress. HEAD: Normal with no signs of trauma. EYES: PERRL, extraocular movements intact, sclera anicteric, conjunctiva clear. ENT: Ears normal, nares patent, oropharynx clear without exudates, moist mucous membranes. NECK: Trachea midline, full range of motion, supple. LUNGS: Breath sounds equal, clear to auscultation bilaterally, no wheezes, no crackles, no accessory muscle use. HEART: Regular rate and rhythm, S1, S2 ABDOMEN: Soft, mild tenderness around the tube site, serosanguinous drainage, no voluntary or involuntary guarding or rigidity, positive bowel sounds EXTREMITIES: 2+ pulses, warm, well-perfused, no edema. NEUROLOGICAL: Cranial nerves II through XII grossly intact. Normal speech, gait not observed. PSYCH: Normal mood, normal affect. SKIN: Warm, dry, normal turgor, no rashes or lesions noted. LABS Laboratory Results - last 24 hr 01/08/19 01/08/19 06:59 06:59 WBC 5.8 RBC 4.35 Hgb 12.9 Hct 37.7 MCV 86.7 MCH 29.6 MCHC 34.1 RDW 13.4 Plt Count 338 MPV 7.1 L Absolute Neuts (auto) 3.1 Neutrophils % 53.3 Lymphocytes % 34.3 D Monocytes % 10.8 H Eosinophils % 0.9 Basophils % 0.7 Nucleated RBC % 0 Sodium 140 Potassium 3.5 Chloride 108 H Carbon Dioxide 25 Anion Gap 7 L BUN 10 Creatinine 0.9 Est GFR (CKD-EPI)AfAm 104.98 Est GFR (CKD-EPI)NonAf 90.58 Random Glucose 82 Calcium 8.7 Total Bilirubin 0.3 Direct Bilirubin 0.2 AST 26 ALT 42 Alkaline Phosphatase 43 L Total Protein 6.3 L Albumin 3.2 L Abdominal US: The liver is within normal limits in size measuring 16.2 cm in sagittal length with mild increased echotexture. There is an echogenic lesion in the right hepatic lobe measuring 3.5 x 2.6 cm. The gallbladder is over distended measuring 10.5 cm in sagittal length with multiple intraluminal stones and this is almost entirely filled with a sludge. There is diffuse thickening of its wall with edema and a trace of pericholecystic free fluid. Is adequately distended without intraluminal stones or thickening of its wall. No intra or extrahepatic bile duct dilatation is seen. The right kidney measures 11 cm sagittal length and appears unremarkable. Visualized portion of the pancreatic head and body appear unremarkable with borderline dilatation of the pancreatic duct. Visualized portion of the proximal abdominal aorta and inferior vena cava appear unremarkable. Normal flow in the main portal vein. Notes made of a right pleural effusion. IMPRESSION: Mild fatty infiltration of the liver versus hepatocellular disease. Echogenic lesion the right hepatic lobe measuring 3.5 cm likely representing a cavernous hemangioma as noted on prior CT scan of the abdomen dated 01/01/2019 Gallbladder is filled with sludge with multiple stones, thickening and edema of its wall and a trace of pericholecystic free fluid. Gyn reported positive Wallace's sign. Findings are compatible with acute cholecystitis. Correlate clinically for further evaluation. HOSPITAL COURSE: Date of Admission:01/04/19 Date of Discharge: 01/08/19 Minutes to complete discharge: 40 Discharge Summary Reason For Visit: CHOLECYSTITIS Current Active Problems Cholecystitis (Acute) Epigastric pain (Acute) Hospital Course: 63 yom with PMhx of HTN, Brain aneurysm clipping 22 years ago, recently admitted with acute cholecystitis, discharged on augmentin comes back with persistent abdominal pain and acute cholecysititis.He was seen by surgery and had IR guided cholecystostomy tube placement. His symptoms resolved and he is tolerating diet well. He was continued on levaquin and flagyl. No fevers or leucocytosis were noted. Detailed education was provided on cholestostomy tube care and home services have been arranged. He will be discharged in stable condition with outpatient surgery to follow up tube removal and cholecystectomy. Condition: Stable - Instructions Diet, Activity, Other Instructions: You were admitted with gall bladder infection, seen by surgeon and received cholecystostomy tube. You were on antibiotics and are advised outpatient follow up to discuss surgery and tube removal. MEDICATIONS: Start these antibiotics: Levaquin 500 mg daily for 7 days Flagyl 500 mg 3 times daily for 7 days Stop your augmentin Continue other home medications as before. INSTRUCTIONS: Routine cholecystostomy tube care as discussed. Advised low fat diet. FOLLOW UP: Please follow up with surgeon in 1 week to discuss further plan including tube removal/surgery in 3-4 weeks vs 6-8 weeks based on the tube drainage Once decision to remove tube has been made, you may be advised by surgeon to follow up with radiology department at [facility] for tube removal. ( information provided) Follow up with PCP in 1 week Outpatient bricklayer helper referral to follow up on liver lesion that is suspected to be 'hemangioma'. If you notice any new fevers, chills, belly pain, jaundice, associated with increased pain or drainage around the tube site, please call 911 or come to the ED. Referrals: Abdirahman Rivas MD [Primary Care Provider] - David Daley MD [Staff Physician] - Juan Yusuf MD [Staff Physician] - 1 Week Disposition: VNS/HOME HEALTH CARE - Home Medications Comprehensive Discharge Medication List: Ambulatory Orders Amlodipine Besylate 1 tab PO DAILY 12/30/18 Hydrochlorothiazide 1 tab PO DAILY 12/30/18 Vitamin B Complex [B Complex] 1 each PO DAILY 12/30/18 Zinc Gluconate-Zinc Picolinate [Zinc] 30 mg PO DAILY 12/30/18 Acetaminophen [Mapap] 500 mg PO TID PRN #10 tablet 01/08/19 Levofloxacin [Levaquin] 500 mg PO DAILY #7 tablet 01/08/19 metroNIDAZOLE [Flagyl -] 500 mg PO Q8H #21 tablet 01/08/19 This patient is new to me today: No Emergency Visit: Yes ED Registration Date: 01/04/19 Care time: The patient presented to the Emergency Department on the above date and was hospitalized for further evaluation of their emergent condition. Critical Care patient: No - Discharge Referral Referred to [facility] Med P.C.: No
[2019-01-08] MEDS: VITAMIN B COMPLEX W/C COMBO TABLET (FP) PO SCH (12:00)
[2019-01-08] MEDS: amLODIPine BESYLATE 5 MG TABLET (FP) PO SCH (12:00)
[2019-01-08] MEDS: ZINC SULFATE 220 MG CAPSULE (FP) PO SCH (12:00)
[2019-01-08] MEDS: PANTOPRAZOLE SODIUM 40 MG VIAL IVPUSH SCH (12:00)
[2019-01-08 14:35] VITALS: BP 132/77; PULSE 72; TEMP 98.6
== END 2019-01-08 14:25 | disposition home health service (06) | DRG 261 ==
LOC: JER 17:59 → J7W 21:18
PROVIDERS: ADMIT Internal Medicine; ATTEND Hospitalist
PROC: 0F9430Z Drainage of Gallbladder with Drainage Device, Percutaneous Approach (ICD-10-PCS; principal; 2019-01-05)
DX: K81.0 Acute cholecystitis (principal); E88.09 Other disorders of plasma-protein metabolism, not elsewhere classified; R16.0 Hepatomegaly, not elsewhere classified; I10 Essential (primary) hypertension; E87.6 Hypokalemia; K76.0 Fatty (change of) liver, not elsewhere classified; I44.0 Atrioventricular block, first degree; E66.9 Obesity, unspecified; Z68.34 Body mass index [BMI] 34.0-34.9, adult
CPT/HCPCS: 36415; 47490; 76705-TC; 76942-TC; 80048; 80053; 80076; 81003; 83690; 83735; 84100; 84484; 85025; 85027; 85610; 87070; 87075; 87102; 87116; 87205; 87206; 87210; 93005; 93010; 99283-25; A4358; C1729; C1769; J1644